=== PATIENT | male | born 1980 | race Caucasian/White ===

== ENCOUNTER 2018-07-25 14:18 | Emergency (ER) | payer MEDICARE, MEDICAID ==
[~2018-07-25] VITALS: Ht 180.3 cm; Wt 115.7 kg
[~2018-07-25 14:18] MED LIST: CPR500T PO; HYDR-229 PO; HYDR-2890 PO; NAPR-243 PO; NITR-65 PO
[2018-07-25] MEDS ORDERED: AZITHROMYCIN 250 MG TAB (ZITHROMAX) PO SCH (17:30)
[2018-07-25] MEDS ORDERED: cefTRIAXone 1,000 MG/2.86 ml vial (IM ONLY) IM SCH (17:30)
[2018-07-25 17:35] LABS: BILIRUBIN,URINE NEGATIVE (NEGATIVE); CLARITY,URINE CLEAR; COLOR,URINE YELLOW; GLUCOSE, URINE (UA) NEGATIVE (NEGATIVE); KETONES,URINE NEGATIVE (NEGATIVE); LEUKOCYTE ESTERASE ,URINE 2+ (NEGATIVE); NITRITE,URINE NEGATIVE (NEGATIVE); PH,URINE 7 (5-9); PROTEIN,URINE NEGATIVE (NEGATIVE); UROBILINOGEN,URINE 1 MG/DL (NORMAL)
[2018-07-25] MEDS ORDERED: cefTRIAXone 1 GM/10 ML for IV (ROCEPHIN) ONE (17:45)
[2018-07-25] MEDS ORDERED: LIDOCAINE 1% INJ 20 ML 20 ML VIAL ONE (17:45)
[2018-07-25 17:47] LABS: BACTERIA,URINE TRACE /HPF; SQUAMOUS EPITHELIAL CELL,UR RARE /HPF
[2018-07-25] MEDS ORDERED: CLOT15CR4 TP (17:47)
[2018-07-25] MEDS ORDERED: MUPI15CR11 TP (17:47)
--- NOTE | 2018-07-25 17:47 | ED GU-Male ---
General Chief Complaint: -Male Stated Complaint: POSS STD Nursing Triage Note: PT AMB TO TRIAGE. A&OX4. CO ITCHING NOTED TO GROIN. PT REPORTS HE SLEPT WITH A FEMALE APPROX 3WKS AGO THAT STATED "YOU CAUGHT SOMETHING FROM ME." PT REPORS ITCHING STARTED 07/22/18. DENIES PAIN AND REDNESS TO GROIN. Source: patient Exam Limitations: no limitations History of Present Illness Date Seen by Provider: Jul 25, 2018 Time Seen by Provider: 17:44 Initial Comments To ER per private vehicle with concerns of a possible STD. He states that he was "with a woman" about 3 weeks ago. About one week ago he developed some itching. He states that his friend told him that he may have caught something from her. He states "I am just itching and shit down there". Denies any draining or dysuria Timing/Duration: week Severity/Quality: moderate Location: groin Radiation: none Activities at Onset: none Prior Genitourinary Problems: none Allergies and Home Medications Allergies Coded Allergies: No Known Drug Allergies (Unverified , 01/18/12) Home Medications Ciprofloxacin 500 Mg Tablet, 1 TAB PO BID Prescribed by: NOY KRAMER on 01/21/12 1240 Hydrocodone Bit/Acetaminophen 1 Each Tablet, 1 EACH PO Q 4 - 6 HRS PRN Prescribed by: REGI SABA on 01/18/12 1100 Hydrocodone Bit/Acetaminophen 1 Each Tablet, 1 EACH PO Q6H PRN Prescribed by: NOY KRAMER on 01/21/12 1240 Naproxen 500 Mg Tablet, 1 EACH PO BID PRN Prescribed by: NOY KRAMER on 01/21/12 1240 Patient Home Medication List Home Medication List Reviewed: Yes Review of Systems Review of Systems Constitutional: see HPI EENTM: see HPI Respiratory: no symptoms reported Cardiovascular: no symptoms reported Genitourinary: see HPI; denies dysuria Musculoskeletal: no symptoms reported Skin: no symptoms reported Psychiatric/Neurological: No Symptoms Reported Endocrine: No Symptoms Reported Past Pnughnv-Wkqfuz-Zxirei Hx Patient Social History Alcohol Use: Rarely Uses Recreational Drug Use: No Smoking Status: Current Everyday Smoker Type Used: Cigarettes 2nd Hand Smoke Exposure: No Recent Foreign Travel: No Contact w/Someone Who Travel: No Recent Infectious Disease Expo: No Recent Hopitalizations: No Seasonal Allergies Seasonal Allergies: No Past Medical History Surgeries: Yes (HERNIA) Respiratory: No Cardiac: No Neurological: No Genitourinary: No Gastrointestinal: No Musculoskeletal: No Endocrine: No HEENT: No Cancer: No Psychosocial: No Integumentary: No Blood Disorders: No Physical Exam Vital Signs Vital Signs - First Documented 07/25/18 16:09 Temp 97.6 Pulse 70 Resp 16 B/P (MAP) 142/94 (110) Pulse Ox 100 O2 Delivery Room Air Capillary Refill : Less Than 3 Seconds Height, Weight, BMI Height: 5'11.00" Weight: 255lbs. oz. 115.534449at; BMI Method:Stated General Appearance: WD/WN, no apparent distress HEENT: PERRL/EOMI, normal ENT inspection Gastrointestinal: normal bowel sounds, non tender, soft Neurologic/Psychiatric: alert, normal mood/affect, oriented x 3 Skin: normal color, warm/dry, other (erythema with well demarcated edges to the groin/inguinal folds bilaterally consistent with tinea cruris) Progress/Results/Core Measures Suspected Sepsis Recent Fever Within 48 Hours: No Infection Criteria Present: None New/Unexplained Altered Menta: No Sepsis Screen: No Definite Risk SIRS Temperature:97.6 Pulse: 70 Respiratory Rate: 16 Blood Pressure 142 /94 Mean: 110 Results/Orders Lab Results Laboratory Tests Test 07/25/18 16:57 Range/Units My Orders Orders - JOANNE AIKEN APRN Ua Culture If Indicated (07/25/18 17:30) Neis Mike Dna Urine Test (07/25/18 17:30) Chlamydia Trachomatis Urine (07/25/18 17:30) Azithromycin Tablet (Zithromax Tablet) (07/25/18 17:30) Ceftriaxone For Im Use (Rocephin For Im (07/25/18 17:30) Vital Signs/I&O 07/25/18 16:09 Temp 97.6 Pulse 70 Resp 16 B/P (MAP) 142/94 (110) Pulse Ox 100 O2 Delivery Room Air Capillary Refill : Less Than 3 Seconds Blood Pressure Mean: 110 Departure Impression Primary Impression: Tinea cruris Disposition: 01 HOME, SELF-CARE Condition: Stable Departure-Patient Inst. Decision time for Depature: 17:46 Referrals: NO,LOCAL PHYSICIAN (PCP/Family) Primary Care Physician Patient Instructions: Dwight Ness (DC) Add. Discharge Instructions: 1. Apply the cream twice daily as directed. Mix the 2 creams together. Scripts Mupirocin Calcium (Mupirocin) 15 Gm Cream..g. 1 GM TP BID, #1 TUBE Prov: JOANNE AIKEN APRN 07/25/18 Clotrimazole/Betamethasone Dip (Lotrisone Cream) 15 Gm Cream..g. 1 GM TP BID, #1 TUBE Prov: JOANNE AIKEN APRN 07/25/18 JOANNE AIKEN APRN Jul 25, 2018 17:47
[2018-07-25 17:55] VITALS: BP 140/89
--- OUTSIDE RECORDS SUMMARY | 2018-07-26 10:22 | XMS REPORT ---
Author Earl Elam [facility] Address [address] [place], [place] [id number] Care Team Providers Care Electronic Calibration Technician Name Role Phone Earl Cooper PCP Unavailable Allergies and Adverse Reactions Name Reaction Notes No known drug allergy Plan of Treatment Not available. Medications Active Name Start Date Estimated Completion Date SIG Comments ibuprofen 200 mg oral capsule tramadol 50 mg oral tablet take 1 tablet (50 mg) by oral route every 4- 6 hours as needed Problem List Description Status Onset Umbilical hernia Active 08/21/2016 Vital Signs Date Time BP-Sys(mm[Hg] BP-Kimberly(mm[Hg]) HR(bpm) RR(rpm) Temp WT HT HC BMI BSA BMI Percentile O2 Sat(%) 08/21/2016 10:06:00 AM 135 mmHg 83 mmHg 74 bpm 20 rpm 97.2 F 266 lbs 71 in 37.10 kg/m2 2.46 m2 08/21/2016 9:28:00 AM 135 mmHg 83 mmHg 74 bpm 20 rpm 97.2 F 266 lbs 71 in 37.0991 kg/m 2.4585 m Social History Name Description Comments Tobacco Never smoker Alcohol Never History of Procedures Date Ordered Description Order Status 08/21/2016 12:00 AM COMPLETE CBC AUTOMATED Reviewed 08/21/2016 12:00 AM COMPREHEN METABOLIC PANEL Reviewed 09/23/2013 12:00 AM IMMUNIZATION ADMIN Reviewed 09/23/2013 12:00 AM FLU VACCINE 3 YRS & > IM Reviewed Results Summary Data and Description Results 08/21/2016 9:55 AM WBC 7.1 RBC 5.65 HGB 15.40 g/dLHCT 47.40 %MCV 84.0 fLMCH 27.30 pgMCHC 32.50 g/dLRDW SD 41 RDW CV 13.40 %MPV 9.30 fLPLT 240 NRBC# 0.00 NRBC% 0.0 %NEUT 54.30 %%LYMP 34.60 %%MONO 7.30 %%EOS 3.10 %%BASO 0.30 %#NEUT 3.87 #LYMP 2.47 #MONO 0.52 #EOS 0.22 #BASO 0.02 SEGS 59 BANDS 3 LYMPHS 34 MONOS 1 EOS 3.0 %ATYP LYMPHS SEVERAL %GLUCOSE 88.0 mg/dLSODIUM 143.0 mmol/LPOTASSIUM 4.90 mmol/LCHLORIDE 108.0 mmol/LCO2 27.0 mmol/LBUN 11.0 mg/dLCREATININE 1.10 mg/ dLSGOT/AST 23.0 IU/LSGPT/ALT 34.0 IU/LALK PHOS 73.0 IU/LTOTAL PROTEIN 6.90 g/ dLALBUMIN 4.50 g/dLTOTAL BILI 0.50 mg/dLCALCIUM 9.70 mg/dLAGE 34 GFR NonAA 77 GFR AA 93 eGFR >60 mL/min/1.73meGFR AA* >60 History Of Immunizations Name Date Admin Mfg Name Mfg Code Trade Name Lot# Route Inj Vis Given Vis Pub CVX Influenza 09/23/2013 sanofi pasteur PMC Fluzone [id number] Intramuscular Left Deltoid 09/23/2013 05/08/2013 141 History of Past Illness Name Date of Onset Comments Attention Deficit Disorder With Hyperactivity Umbilical hernia 08/21/2016 Flu Sep 23 2013 1:20PM Preop examination Aug 21 2016 9:30AM Umbilical hernia Aug 21 2016 9:30AM Payers Insurance Name Company Name Plan Name Plan Number Policy Number Policy Group Number Start Date Medicare Part A Medicare Part A [id number] N/A [place] 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
--- OUTSIDE RECORDS SUMMARY | 2018-07-26 10:22 | XMS REPORT ---
Author Author Earl Cooper [facility] Address [address] [place], [place] [phone] Care Team Providers Care Presser And Blocker Knitted Goods Name Role Phone Earl Cooper PCP Unavailable Allergies and Adverse Reactions Name Reaction Notes No known drug allergy Plan of Treatment Planned Activity Comments Planned Date Planned Time Plan/Goal CBC W/ MANUAL DIFF 08/21/2016 12:00 AM CMP 08/21/2016 12:00 AM Medications Active Name Start Date Estimated Completion Date SIG Comments ibuprofen 200 mg oral capsule Problem List Description Status Onset Umbilical hernia Active 08/21/2016 Preop examination Active 08/21/2016 Vital Signs Date Time BP-Sys(mm[Hg] [...] m Social History Name Description Comments Tobacco Alcohol History of Procedures Date Ordered Description Order Status 09/23/2013 12:00 AM IMMUNIZATION ADMIN Reviewed 09/23/2013 12:00 AM FLU VACCINE 3 YRS & > IM Reviewed Results Summary Not available. History Of Immunizations Name Date Admin Mfg Name Mfg Code Trade Name Lot# Route Inj Vis Given Vis Pub CVX Influenza 09/23/2013 sanofi pasteur PMC Fluzone [id number] Intramuscular Left Deltoid 09/23/2013 05/08/2013 141 History of Past Illness Name Date of Onset Comments Attention Deficit Disorder With Hyperactivity Umbilical hernia 08/21/2016 Preop examination 08/21/2016 Flu Sep 23 2013 1:20PM Preop examination Aug 21 2016 9:30AM Umbilical hernia Aug 21 2016 9:30AM Payers Insurance Name Company Name Plan Name Plan Number Policy Number Policy Group Number Start Date Medicare Part A Medicare Part A [id number] N/A [place] 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
--- OUTSIDE RECORDS SUMMARY | 2018-07-26 10:22 | XMS REPORT | CCD ---
Author Author YONNY MORROW Organization Unknown Address [address] [address] [place] [address] Care Team Providers Care Lift Driver Name Role Phone HINSON, KARMA DO Attphys HINSON, KARMA DO Prisurg Allergies Allergy Code Allergy Type Reaction Status No Known Drug Allergies 0 Drug allergy Active Active Medications Unknown or Not Available. Problems Unknown or Not Available. Procedures Unknown or Not Available. Results Unknown or Not Available. Encounters Encounter Diagnosis Diagnosis Code Start Date Laceration without foreign body of right thumb without damage to nail, initial encounter [id number] 01/11/2017 Function Status Unknown or Not Available. History of Immunizations Immunization Code Date DTP 1982 DTP 01 1982 DTP 01 01/29/1983 OPV 02 1982 OPV 02 1982 OPV 02 01/29/1983 OPV 02 12/15/1984 MMR 03 11/19/1983 Hib (HbOC) 47 07/15/1987 Influenza, seasonal, injectable 141 09/23/2013 Social History Smoking Status Code Start Date End Date Current every day smoker [id number] Vital Signs Unknown or Not Available. Function Status Unknown or Not Available. Goals Unknown or Not Available. ASSESSMENTS Unknown or Not Available. Health Concerns Section Unknown or Not Available.
--- OUTSIDE RECORDS SUMMARY | 2018-07-26 10:23 | XMS REPORT ---
Author Author Earl Cooper [facility] Address [address] [place], [place] [address] Care Team Providers Care Monitoring Engineer Name Role Phone Earl Cooper PCP Unavailable [...] CVX Influenza 09/23/2013 sanofi pasteur PMC Fluzone [id number] Intramuscular Left Deltoid 09/23/2013 05/08/2013 141 History [...] Date Medicare Part A Medicare Part A [id number] N/A [place] [employer] Prog - R[place] [employer] Prog - RHC [id number] N/A Medicare Part A Medicare - Lab/Xray [id number] N/A Medicare Part B Medicare Of [place] [id number] N/A [place] Medical [place] Program [place] Medical [place] Pro[place] [id number] N/A History of Encounters Visit Date Visit Type Provider 08/21/2016 Office visit Earl Cooper DO 09/23/2013 Nurse visit Barbara Padilla MD
--- OUTSIDE RECORDS SUMMARY | 2018-07-26 10:23 | XMS REPORT ---
Author Earl Elam [facility] Address [address] [place], [place] [address] Care Team Providers Care Director Dermatology Name Role Phone Earl Cooper PCP Unavailable [...] HC BMI BSA BMI Percentile O2 Sat(%) 09/04/2016 1:08:00 PM 126 mmHg 97 mmHg 82 bpm 20 rpm 97.4 F 264.5 lbs 71 in 36.89 kg/m2 2.45 m2 08/21/2016 10:06:00 AM 135 mmHg 83 mmHg 74 bpm 20 rpm 97.2 F 266 lbs 71 in 37.0991 kg/m 2.4585 m 08/21/2016 9:28:00 AM 135 mmHg 83 mmHg 74 bpm 20 rpm 97.2 F 266 lbs 71 in 37.10 kg/m2 2.46 m2 Social History Name Description Comments Tobacco Never [...] CVX Influenza 09/23/2013 sanofi pasteur PMC Fluzone [id number] Intramuscular Left Deltoid 09/23/2013 05/08/2013 141 History of Past Illness Name Date of Onset Comments Attention Deficit Disorder With Hyperactivity Umbilical hernia 08/21/2016 Flu Sep 23 2013 1:20PM Preop examination Aug 21 2016 9:30AM Umbilical hernia Aug 21 2016 9:30AM Payers Insurance Name Company Name Plan Name Plan Number Policy Number Policy Group Number Start Date Medicare Part A Medicare Part A [id number] N/A [place] [employer]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
--- OUTSIDE RECORDS SUMMARY | 2018-07-26 10:23 | XMS REPORT ---
Author Author CHANTAL NI Organization [facility] Address [address] [place] [address] Care Team Providers Care Log Inspector Name Role Phone CHANTAL NI Unavailable PROBLEMS Unknown Problems ALLERGIES No Information ENCOUNTERS Encounter Location Date Diagnosis [place] [id number] [address] Aug, Encounter for immunization Z23 [place] [id number] [address] Sep, Encounter for immunization [place] [address] [place] [id number] [address] Aug, IMMUNIZATIONS Vaccine Route Administration Date Status FLUARIX QUAD (3 AND UP) 2016 IM Intramuscular Aug 19, 2017 Administered SOCIAL HISTORY Never Assessed REASON FOR VISIT Flu shot STeposte CCMA PLAN OF CARE VITAL SIGNS MEDICATIONS Unknown Medications RESULTS No Results PROCEDURES Procedure Date Ordered Result Body Site FLUARIX QUAD (3 AND UP) 2017 Aug 19, 2017 SINGLE IMMUNIZATION ADMIN Aug 19, 2017 INSTRUCTIONS MEDICATIONS ADMINISTERED No Known Medications
--- OUTSIDE RECORDS SUMMARY | 2018-07-26 10:23 | XMS REPORT | Continuity of Care Document ---
Author Author [facility] Organization [facility] Address Unknown Phone Unavailable Allergies Active Description Code Type Severity Reaction Onset Reported/Identified Relationship to Patient Clinical Status Yes No Known Drug Allergies [id number] N/A N/A Medications There is no data. Problems There is no data. Procedures There is no data. Results Test Result Range Complete urinalysis with reflex to culture - 07/25/18 16:57 Urine color determination YELLOW NRG Urine clarity determination CLEAR NRG Urine pH measurement by test strip 7 5-9 Specific gravity of urine by test strip 1.010 1.016- 1.022 Urine protein assay by test strip, semi-quantitative NEGATIVE NEGATIVE Urine glucose detection by automated test strip NEGATIVE NEGATIVE Erythrocytes detection in urine sediment by light microscopy NEGATIVE NEGATIVE Urine ketones detection by automated test strip NEGATIVE NEGATIVE Urine nitrite detection by test strip NEGATIVE NEGATIVE Urine total bilirubin detection by test strip NEGATIVE NEGATIVE Urine urobilinogen measurement by automated test strip (mass/volume) 1 mg/dL NORMAL Urine leukocyte esterase detection by dipstick 2+ NEGATIVE Automated urine sediment erythrocyte count by microscopy (number/high power field) NONE NRG Automated urine sediment leukocyte count by microscopy (number/high power field ) [HPF] NRG Bacteria detection in urine sediment by light microscopy TRACE NRG Squamous epithelial cells detection in urine sediment by light microscopy RARE NRG Crystals detection in urine sediment by light microscopy NONE NRG Casts detection in urine sediment by light microscopy NONE NRG Mucus detection in urine sediment by light microscopy MODERATE NRG Complete urinalysis with reflex to culture YES NRG Encounters ACCT No. Visit Date/Time Discharge Status Pt. Type Provider Facility Loc./Unit Complaint [id number] 09/04/2016 13:42:48 09/04/2016 23:59:59 [facility] Outpatient Earl Cooper [id number] 08/28/2016 15:36:10 08/28/2016 23:59:59 [facility] Outpatient Earl Cooper [id number] 08/21/2016 10:17:54 08/21/2016 23:59:59 [facility] Outpatient Earl Cooper [id number] 11/05/2013 15:34:34 11/05/2013 23:59:59 [facility] Outpatient Barbara Padilla [id number] 08/19/2017 08:20:00 08/19/2017 23:59:59 [facility] Outpatient CASI RAMOS [facility] [id number] 09/13/2017 15:00:02 Document Registration [id number] 07/25/2018 17:47:00 Document Registration
--- OUTSIDE RECORDS SUMMARY | 2018-07-26 10:23 | XMS REPORT ---
Author Author CHANTAL NI [facility] Address [address] [place] [address] Care Team Providers Care Rigging Slinger Name Role Phone CHANTAL NI Unavailable PROBLEMS Unknown Problems ALLERGIES Substance Reaction Event Type Date Status N.K.D.A. Unknown Non Drug Allergy Sep, Unknown SOCIAL HISTORY No smoking Hx information available PLAN OF CARE VITAL SIGNS MEDICATIONS No Known Medications RESULTS No Results PROCEDURES Procedure Date Ordered Related Diagnosis Body Site FLUARIX QUAD P-FREE 3 AND UP .50 2015Oct 03, 2016 SINGLE IMMUNIZATION ADMIN Oct 03, 2016 IMMUNIZATIONS Vaccine Route Administration Date Status FLUARIX QUAD P-FREE 3 AND UP .50 2015 IM Intramuscular Oct 03, 2016 Administered
== END 2018-07-25 17:56 | disposition home or self-care (01) ==
LOC: EDUNIT# 14:18 → ER 14:19
DX: B35.6 Tinea cruris (principal); F17.210 Nicotine dependence, cigarettes, uncomplicated; Z98.890 Other specified postprocedural states
CPT/HCPCS: 36415; 81000; 87088; 87491; 87591; 99284

== ENCOUNTER 2018-07-27 17:16 | Emergency (ER) | payer MEDICARE, MEDICAID ==
[~2018-07-27] VITALS: Ht 180.3 cm; Wt 115.7 kg
[~2018-07-27 17:16] MED LIST changes: +CLOT15CR4 TP; +MUPI15CR11 TP
--- OUTSIDE RECORDS SUMMARY | 2018-07-27 17:21 | XMS REPORT | Continuity of Care Document ---
Author Author [facility] Organization [facility] Address Unknown Phone Unavailable Allergies Active Description Code Type Severity Reaction Onset Reported/Identified Relationship to Patient Clinical Status Yes No Known Drug Allergies [id number] N/A N/A Medications There is no data. [...] Status Pt. Type Provider Facility Loc./Unit Complaint [id number] 09/04/2016 13:42:48 09/04/2016 23:59:59 [facility] Outpatient Earl Cooper [id number] 08/28/2016 15:36:10 08/28/2016 23:59:59 [facility] Outpatient Earl Cooper [id number] 08/21/2016 10:17:54 08/21/2016 23:59:59 [facility] Outpatient Earl Cooper [id number] 11/05/2013 15:34:34 11/05/2013 23:59:59 [facility] Outpatient Barbara Padilla [id number] 08/19/2017 08:20:00 08/19/2017 23:59:59 [facility] Outpatient CASI RAMOS [facility] [id number] 09/13/2017 15:00:02 Document Registration [id number] 07/25/2018 17:47:00 Document Registration
--- NOTE | 2018-07-27 17:44 | ED Abdominal Pain ---
General Chief Complaint: Abdominal/GI Problems Stated Complaint: VOMITTING,FEVER Nursing Triage Note: PT CO OF N/V/D CHILLS AT TIMES, DIZZINESS. HAS VOMITED X5 TODAY. AND HAD DIARRHEA WAS SEEN IN ED ON SATURDAY AND TREATED FOR STD AND JOCK ITCH. PT TELLS THIS RN 4X THAT HE NEEDS A WORK NOTE DURING TRIAGE UNTIL SATURDAY Sepsis Screen: No Definite Risk Source of Information: Patient Exam Limitations: No Limitations History of Present Illness Date Seen by Provider: Jul 27, 2018 Time Seen by Provider: 17:42 Initial Comments Patient is a 38-year-old male who presents to the emergency room with complaints of body aches, fever, nausea, vomiting, diarrhea for the past 2 days. He reports that he was at work today and was sent home and was told that he needed a work note before he return back to work so he decided emergency room. He was seen in the emergency room on Saturday and was treated for STD and tinea cruris. Timing/Duration: 2-3 Days Associated Symptoms: Fever/Chills, Nausea/Vomiting Allergies and Home Medications Allergies Coded Allergies: No Known Drug Allergies (Unverified , 01/18/12) Home Medications Clotrimazole/Betamethasone Dip 15 Gm Cream..g., 1 GM TP BID Prescribed by: JOANNE AIKEN on 07/25/181746 Mupirocin Calcium 15 Gm Cream..g., 1 GM TP BID Prescribed by: JOANNE AIKEN on 07/25/181746 Ondansetron 4 Mg Tab.rapdis, 4 MG SL Q4H PRN for NAUSEA/VOMITING-1ST LINE Prescribed by: PHONG BAXTER on 07/27/18 1750 Patient Home Medication List Home Medication List Reviewed: Yes Review of Systems Review of Systems Constitutional: see HPI, chills, fever Gastrointestinal: See HPI; Denies Abdominal Pain; Diarrhea, Nausea, Vomiting Musculoskeletal: see HPI, other (body aches) All Other Systems Reviewed Negative Unless Noted: Yes Past Yrpqgbo-Kuuqht-Ouwgen Hx Past Med/Social Hx: Reviewed Nursing Past Med/Soc Hx Patient Social History Alcohol Use: Denies Use Recreational Drug Use: No Type Used: Cigarettes 2nd Hand Smoke Exposure: No Recent Foreign Travel: No Contact w/Someone Who Travel: No Recent Infectious Disease Expo: No Recent Hopitalizations: No Physical Abuse: No Sexual Abuse: No Seasonal Allergies Seasonal Allergies: No Past Medical History Surgeries: Yes (HERNIA) Respiratory: No Cardiac: No Neurological: No Genitourinary: No Gastrointestinal: No Musculoskeletal: No Endocrine: No HEENT: No Cancer: No Psychosocial: No Integumentary: No Blood Disorders: No Family Medical History Reviewed Nursing Family Hx Physical Exam Vital Signs Vital Signs - First Documented 07/27/18 17:20 Temp 98.2 Pulse 82 Resp 18 B/P (MAP) 173/108 (129) Pulse Ox 96 Capillary Refill : Less Than 3 Seconds Height/Weight/BMI Height: 5'11.00" Weight: 255lbs. oz. 115.719697ir; BMI Method:Stated General Appearance: WD/WN, no apparent distress Respiratory: chest non-tender, lungs clear, normal breath sounds, no respiratory distress, no accessory muscle use Cardiovascular: normal peripheral pulses, regular rate, rhythm, no edema, no gallop, no JVD, no murmur Gastrointestinal: normal bowel sounds, non tender, soft, no organomegaly, no pulsatile mass Extremities: normal capillary refill Neurologic/Psychiatric: alert, normal mood/affect, oriented x 3 Skin: normal color, warm/dry Progress/Results/Core Measures Results/Orders Micro Results Microbiology 07/27/18 Influenza Types A,B Antigen (FLORIAN) - Final, Complete My Orders Orders - PHONG BAXTER Influenza A And B Antigens (07/27/18 17:29) Ondansetron Oral Dissolve Tab (Zofran (07/27/18 17:45) Acetaminophen Tablet (Tylenol Tablet) (07/27/18 17:45) Vital Signs/I&O 07/27/18 07/27/18 17:20 18:23 Temp 98.2 Pulse 82 78 Resp 18 18 B/P (MAP) 173/108 (129) 145/88 (107) Pulse Ox 96 96 Blood Pressure Mean: 129 Progress Progress Note : Time: 17:40 Progress Note I have seen and evaluated the patient. I offered to do lab work and he declined. His states "i just want a work note". Work note was provided. Return precautions were given. Voices no questions or concerns. Departure Impression Primary Impression: Influenza-like symptoms Disposition: 01 HOME, SELF-CARE Condition: Stable/Unchanged Departure-Patient Inst. Decision time for Depature: 17:47 Referrals: DONTRELL GUERRA DO (PCP) Primary Care Physician Patient Instructions: Nausea and Vomiting, Adult, VIRAL SYNDROME Add. Discharge Instructions: Take medications as directed. Follow-up with her primary care provider within 1 week for recheck. Tylenol and ibuprofen as directed by the bottle for pain and fevers. Return back to the emergency room for any worsening symptoms or concerns as needed. All discharge instructions reviewed with patient and/or family. Voiced understanding. Scripts Ondansetron (Zofran Odt) 4 Mg Tab.rapdis 4 MG SL Q4H PRN for NAUSEA/VOMITING-1ST LINE, #14 TAB Prov: PHONG BAXTER 07/27/18 PHONG BAXTER Jul 27, 2018 17:44
[2018-07-27] MEDS ORDERED: ACETAMINOPHEN 500 MG TAB (TYLENOL) PO PRN (17:45)
[2018-07-27] MEDS ORDERED: ONDANSETRON 4 MG (ZOFRAN) ORAL DISSOLVE TAB PO ONE (17:45)
[2018-07-27] MEDS ORDERED: ONDA4TAB8 SL (17:50)
[2018-07-27 18:23] VITALS: BP 145/88
== END 2018-07-27 18:33 | disposition home or self-care (01) ==
LOC: EDUNIT# 17:16 → ER 17:17
DX: J10.1 Influenza due to other identified influenza virus with other respiratory manifestations (principal); Z98.890 Other specified postprocedural states
CPT/HCPCS: 87804

== ENCOUNTER → 2020-05-23 | Outpatient (CLI) | payer MEDICARE, MEDICAID ==
[~2020-05-23] VITALS: Ht 180.3 cm; Wt 123.4 kg
[~2020-05-23] MED LIST changes: +ONDA4TAB8 SL; +PANT40TA3 PO
== END ==
LOC: PREOP 05:36
PROVIDERS: ATTEND Surgery
DX: Z01.818 Encounter for other preprocedural examination (principal); K92.0 Hematemesis

== ENCOUNTER 2020-05-30 07:10 | Day surgery (SDC) | payer MEDICARE, MEDICAID ==
[2020-05-30] VITALS (9 sets, daily range): BP systolic 123–149; BP diastolic 73–101
[~2020-05-30] VITALS: Ht 180.3 cm; Wt 123.4 kg
[2020-05-30] MEDS ORDERED: PROPOFOL INJECTION 50 ML IV ONE (07:22)
[2020-05-30] MEDS ORDERED: MIDAZOLAM 2 MG/2 ML (VERSED) VIAL ONE (07:23)
[2020-05-30] MEDS ORDERED: LACTATED RINGERS 1,000 ML IV ONE (07:42)
[2020-05-30] MEDS ORDERED: HURRICAINE EXT TUBE (BENZOCAINE) XX PRN (08:00)
[2020-05-30] MEDS ORDERED: LACTATED RINGERS 1,000 ML IV PRN (08:00)
--- NOTE | 2020-05-30 08:04 | Progress Note-Pre Operative ---
Pre-Operative Progress Note H&P Reviewed The H&P was reviewed, patient examined and no changes noted. Time Seen by Provider: 08:00 Date H&P Reviewed: May 30, 2020 Time H&P Reviewed: 07:59 Pre-Operative Diagnosis: hematemesis JOESPH ADAM DO May 30, 2020 08:04
--- OUTSIDE RECORDS SUMMARY | 2020-05-30 08:42 | XMS REPORT | Continuity of Care Document ---
Demographics Preferred Language Unknown Marital Status Unknown Denominational Affiliation Unknown Race Unknown Ethnic Group Unknown Author Author [facility] Organization [employer] Address Unknown Phone Unavailable Allergies Active Description Code Type Severity Reaction Onset Reported/Identified Relationship to Patient Clinical Status Yes No Known Drug Allergies [id number] N/A N/A Yes No Known Drug Allergies [id number] Drug Allergy Unknown N/A 01/18/2012 Medications There is no data. Problems Date Dx Coded Attending Type Code Diagnosis Diagnosed By 07/25/2018 JOANNE AIKEN APRN Ot B35 .6 TINEA CRURIS 07/25/2018 JOANNE AIKEN APRN Ot F17.210 NICOTINE DEPENDENCE, CIGARETTES, UNCOMPL 07/25/2018 JOANNE AIKEN APRN Ot L29 .9 PRURITUS, UNSPECIFIED 07/25/2018 JOANNE AIKEN APRN Ot Z98.890 OTHER SPECIFIED POSTPROCEDURAL STATES 07/27/2018 PHONG BAXTER Ot J10.1 FLU DUE TO OTH IDENT INFLUENZA VIRUS W O 07/27/2018 PHONG BAXTER Ot R11.2 NAUSEA WITH VOMITING, UNSPECIFIED 07/27/2018 PHONG BAXTER Ot Z98.890 OTHER SPECIFIED POSTPROCEDURAL STATES 07/28/2018 JOANNE AIKEN APRN Ot B35 .6 TINEA CRURIS 07/28/2018 JOANNE AIKEN APRN Ot F17.210 NICOTINE DEPENDENCE, CIGARETTES, UNCOMPL 07/28/2018 JOANNE AIKEN APRN Ot L29 .9 PRURITUS, UNSPECIFIED 07/28/2018 JOANNE AIKEN APRN Ot Z98.890 OTHER SPECIFIED POSTPROCEDURAL STATES 07/29/2018 BERNPHONG FRANKLIN Ot J10.1 FLU DUE TO OTH IDENT INFLUENZA VIRUS W O 07/29/2018 BERNOTPHONG Ot R11.2 NAUSEA WITH VOMITING, UNSPECIFIED 07/29/2018 BERNOTPHONG Ot Z98.890 OTHER SPECIFIED POSTPROCEDURAL STATES 10/12/2018 P R110 Nausea 10/12/2018 S [id number] Per carol history of nicotine dependence 05/25/2020 DELMAN DO, JOESPH B Ot K92.0 HEMATEMESIS 05/25/2020 ANGELCLARENDON DO, JOESPH B Ot Z01.8 18 ENCOUNTER FOR OTHER PREPROCEDURAL EXAMIN 05/27/2020 KIA DO, JOESPH B Ot K92.0 HEMATEMESIS 05/27/2020 KIA DO, JOESPH B Ot Z01.8 18 ENCOUNTER FOR OTHER PREPROCEDURAL EXAMIN Procedures There is no data. Results Test Result Range Complete urinalysis with reflex to cultu re - 07/25/18 16:57 Urine color determination YELLOW NRG Urine clarity determination CLEAR NR G Urine pH measurement by test strip 7 5-9 Specific gravity of urine by test strip 1.010 1.016-1.022 Urine protein assay by test strip, semi-quantitative NEGATIVE NEGATIVE Urine glucose detection by automated test strip NE GATIVE NEGATIVE Erythrocytes detection in urine sediment by light micr oscopy NEGATIVE NEGATIVE Urine ketones detection by automated test strip NE GATIVE NEGATIVE Urine nitrite detection by test strip NEGATIVE NEGATIVE Urine total bilirubin detection by test strip NEGA TIVE NEGATIVE Urine urobilinogen measurement by automated test strip (mass/volume) 1 mg/dL NORMAL Urine leukocyte esterase detection by dipstick 2+ NEGATIVE Automated urine sediment erythrocyte cou nt by microscopy (number/high power field) NONE NRG Automated urine sediment leukocyte count by microscopy (number/high power field) [HPF] NRG Bacteria detection in urine sediment by light microsco py TRACE NRG Squamous epithelial cells detection in u rine sediment by light microscopy RARE NRG Crystals detection in urine sediment by light microsco py NONE NRG Casts detection in urine sediment by light microscopy NONE NRG Mucus detection in urine sediment by light microscopy MODERATE NRG Complete urinalysis with reflex to culture YES NRG Bacterial urine culture - 07/25/18 16:57 Bacterial urine culture NG NRG Chlamydia DNA amp probe, urine - 8 16:57 Chlamydia DNA amp probe, urine Detected Not Detected Urine Neisseria gonorrhoeae DNA assay - 07/25/18 16:57 Gonorrhea amp DNA-urine Not Detected No t Detected Influenza virus A and B antigen detectio n - 07/27/18 17:30 FLU RESULT NEGATIVE FOR INFLUENZA A AND B ANTIGENS BY IA NRG HEP B SURFACE ANTIGEN - 05/11/20 12:06 HEPATITIS B SURFACE ANTIGEN NON-REACTIVE NON-REACTIVE GC/CHLAMYDIA (SWAB OR URINE)-RAPID - 12:18 CHLAMYDIA TRACHOMATIS RNA, TMA NOT DETECTED NOT DETECTED NEISSERIA GONORRHOEAE RNA, TMA NOT DETECTED NOT DETECTED COMMENT NRG Encounters ACCT No. Visit Date/Time Discharge Status Pt. Type Provider Facility Loc./Unit Complaint [id number] 10/12/2018 10:55:42 Document Registration [id number] 10/12/2018 10:41:17 Document Registration [id number] 09/13/2017 15:00:02 Document Registration [id number] 05/11/2020 10:00:00 05/11/2020 23:59:5 9 CLS Outpatient CASI RAMOS [facility] [id number] 05/11/2020 10:00:00 Document Registration [id number] 05/27/2020 05:45:00 09:27:00 DIS Outpatient JOESPH ADAM DO [facility] PREOP HEMATEMESIS [id number] 07/27/2018 17:17:00 18:33:00 DIS Emergency PHONG BAXTER [facility] ER VOMITTING,FEVER [id number] 07/25/2018 14:19:00 018 17:56:00 DIS Emergency JOANNE AIKEN ROVING TELLER [facility] ER POSS STD [id number] 05/30/2020 08:40:00 P EN Preadmit JOESPH ADAM DO [facility] ENDO HEMATEMESIS [id number] 09/04/2016 13:42:48 09/04/2016 23:59: 59 CLS Outpatient Earl Cooper [id number] 08/28/2016 15:36:10 08/28/2016 23:59: 59 CLS Outpatient Earl Cooper [id number] 08/21/2016 10:17:54 08/21/2016 23:59: 59 CLS Outpatient Earl Cooper [id number] 11/05/2013 15:34:34 11/05/2013 23:59: 59 CLS Outpatient Barbara Padilla
--- NOTE | 2020-05-30 08:57 | Progress Note-Post Operative ---
Post-Operative Progess Note Surgeon (s)/Insulator Tester (s) Surgeon JOESPH ADAM DO Insulator Tester: none Pre-Operative Diagnosis hematemesis Post-Operative Diagnosis Gastritis Hiatal hernia Procedure & Operative Findings Date of Procedure 05/30/20 Procedure Performed/Findings EGD with bx Anesthesia Type IV sedation by ARCHITECTURAL REPRESENTATIVE Estimated Blood Loss Estimated blood loss (mL): scant Specimens/Packing Specimens Removed antral bx body of stomach bx GE jxn bx JOESPH ADAM DO May 30, 2020 08:57
--- NOTE | 2020-05-30 08:58 | Endoscopy Discharge Instruct ---
Endo Procedure/Findings Findings 1.: Gastritis 2.: Hiatal Hernia Discharge Instructions - Activity: You might feel a little sleepy until tomorrow. This is due to the medicine you received to relax you. Until tomorrow, you should: NOT drive a car, operate machinery or power tools. NOT drink any alcoholic beverages. NOT make any important decisions or sign importortant papers. Do not return to work until tomorrow, unless otherwise instructed. Resume previous activities tomorrow. Diet: Start by taking liquids. If you tolerate liquids, advance to solid food. make an appointment for one week 1.: EGD in 1 year Notify Physician - If you experience excessive bleeding, unusual abdominal pain, fever, or chest pain, contact your doctor immediately. JOESPH ADAM DO May 30, 2020 08:58
--- NOTE | 2020-05-30 10:51 | Anesthesia-General Post-Op ---
MAC Patient Condition Mental Status/LOC: Same as Preop Cardiovascular: Satisfactory Nausea/Vomiting: Absent Respiratory: Satisfactory Pain: Controlled Complications: Absent Post Op Complications Complications None Follow Up Care/Instructions Patient Instructions None needed. Anesthesiology Discharge Order Discharge Order Patient is doing well, no complaints, stable vital signs, no apparent adverse anesthesia problems. No complications reported per nursing. AKUA BURGER CRNA May 30, 2020 10:51
--- NOTE | 2020-05-31 00:57 | OPERATIVE REPORT ---
DATE OF SERVICE: PREOPERATIVE DIAGNOSIS: Hematemesis. POSTOPERATIVE DIAGNOSES: Gastritis and hiatal hernia. PROCEDURE: EGD with biopsy. SURGEON: Srinivas Berumen DO UNION CARPENTER: None. ANESTHESIA: IV sedation by the FINANCIAL SERVICES CONSULTANT. SPECIMEN: Biopsy of the antrum, biopsy of body of stomach, biopsy of the GE junction. BLOOD LOSS: Scant. FLUIDS: Per anesthesia. POSTOPERATIVE CONDITION: Stable. INDICATION FOR PROCEDURE: The patient is a 39-year-old male, who has been having some hematemesis and needed a workup. FINDINGS: The patient had some mild gastritis and a small hiatal hernia. No other obvious pathology or reason for the hematemesis. PROCEDURE NOTE: After informed consent was obtained, the patient was brought to the endoscopy suite, placed in bed in left lateral decubitus position. He was administered IV sedation by the FINANCIAL SERVICES CONSULTANT who then monitored his vitals the entire time, heart rate, blood pressure and pulse ox and the scope was inserted down the mouth through the esophagus into the stomach. Upon entering the stomach, noted some gastritis in the antrum, pushing the duodenum. Duodenum looked fine. Pulled back and did a biopsy of the antrum, then retroflexed the scope, saw small hiatal hernia and then did a biopsy of body of stomach, pulled the scope into the GE junction, did a biopsy and then pushed the scope into the stomach, suctioned all the air out and then pulled the scope up the esophagus and out the mouth, did not find any pathology in the esophagus, removed the scope. The patient tolerated the procedure, recovered in endoscopy suite. Job ID: [id number] DocumentID: [id number] Dictated Date: 05/30/2020 15:01:51 Refrigeration Specialist Date: 05/31/2020 00:56:25 Dictated By: SRINIVAS BERUMEN DO
== END 2020-05-30 09:40 | disposition home or self-care (01) ==
LOC: ENDO 07:10
PROVIDERS: ATTEND Surgery
DX: K29.50 Unspecified chronic gastritis without bleeding (principal); K44.9 Diaphragmatic hernia without obstruction or gangrene; Z87.891 Personal history of nicotine dependence
CPT/HCPCS: 88305

== ENCOUNTER 2020-09-08 12:27 | Emergency (ER) | payer MEDICARE, MEDICAID ==
[~2020-09-08] VITALS: Ht 180.3 cm; Wt 104.0 kg
[~2020-09-08 12:27] MED LIST changes: -PANT40TA3 PO; +PANT40TA52 PO
[2020-09-08] MEDS ORDERED: RX-CYCLOBENZAPRINE 10 MG (FLEXERIL) TAB PPK#3 PO STA (13:23)
[2020-09-08] MEDS ORDERED: RX-TRAMADOL 50 MG (ULTRAM) TAB PPK#4 PO STA (13:23)
[2020-09-08] MEDS ORDERED: TRAM-42 PO (13:28)
[2020-09-08] MEDS ORDERED: CYCL10TA9 PO (13:28)
[2020-09-08] MEDS ORDERED: KETOROLAC 30 MG/ML VIAL IM ONE (13:30)
--- NOTE | 2020-09-08 13:30 | ED Back Pain ---
General Chief Complaint: Back Problems Stated Complaint: BACK PAIN Source of Information: Patient Exam Limitations: No Limitations History of Present Illness Date Seen by Provider: Sep 08, 2020 Time Seen by Provider: 13:15 Initial Comments This 40-year-old gentleman presents to the emergency room with complaints of mid to lower back pain starting 1 to 2 weeks ago. 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 He denies any weakness in the legs, paresthesias, pain radiating down the legs, saddle paresthesia, or bowel or bladder dysfunction. He has tried ibuprofen 800 mg without relief. Allergies and Home Medications Allergies Coded Allergies: No Known Drug Allergies (Unverified , 01/18/12) Home Medications Cyclobenzaprine HCl 10 Mg Tablet, 10 MG PO Q8H PRN for SPASMS Prescribed by: ED GOMEZ on 09/08/20 1328 Pantoprazole Sodium 40 Mg Tablet.dr, 40 MG PO DAILY, (Reported) Tramadol HCl 50 Mg Tablet, 50 MG PO Q6H PRN for PAIN-BREAKTHROUGH Prescribed by: ED GOMEZ on 09/08/20 1330 Patient Home Medication List Home Medication List Reviewed: Yes Review of Systems Constitutional: no symptoms reported EENTM: no symptoms reported Respiratory: no symptoms reported Cardiovascular: no symptoms reported Gastrointestinal: no symptoms reported Genitourinary: no symptoms reported Musculoskeletal: see HPI Skin: no symptoms reported Psychiatric/Neurological: No Symptoms Reported Past Foqbolq-Vskbcg-Slitod Hx Past Med/Social Hx: Reviewed Nursing Past Med/Soc Hx Patient Social History Alcohol Use: Denies Use Recreational Drug Use: No Smoking Status: Former Smoker Type Used: Cigarettes Former Smoker, Quit: May 23, 2018 2nd Hand Smoke Exposure: No Recent Hopitalizations: No Seasonal Allergies Seasonal Allergies: No Past Medical History Surgeries: Yes (HERNIA) Respiratory: No Cardiac: No Neurological: No Genitourinary: No Gastrointestinal: Yes (hematemesis) Musculoskeletal: No Endocrine: No HEENT: No Cancer: No Psychosocial: No Integumentary: No Blood Disorders: No Physical Exam Vital Signs Capillary Refill : Height, Weight, BMI Height: 5'11.00" Weight: 255lbs. oz. 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 A take-home pack of tramadol and cyclobenzaprine was dispensed as it is the holiday and pharmacies in [facility] are closed. Work note provided. Departure Impression Primary Impression: Low back pain Qualified Codes: M54.5 - Low back pain Disposition: 01 HOME, SELF-CARE Condition: Improved Departure-Patient Inst. Decision time for Depature: 13:25 [place] [facility] [place] Primary Care Physician ERNESTO TAPIA (Family) Primary Care Physician Patient Instructions: Low Back Pain in Adults Add. Discharge Instructions: For primary pain control take ibuprofen up to 600 mg every 6 hours and Tylenol (acetaminophen) up to 1000 mg every 6 hours as needed. Add Ultram (tramadol) as prescribed for pain not controlled by Tylenol and ibuprofen. If you are having muscle tension or spasms, try the Flexeril (cyclobenzaprine) e very 8 hours. Using gentle heat on your back such as a warm moist towel may help relax the muscles. Avoid heavy lifting and bending until pain improves. Contact your primary care provider tomorrow for follow-up. Return to the emergency room if you have worsening symptoms, especially if you develop weakness in your legs, numbness in your legs, difficulty controlling your bowels or bladder, or numbness in your groin. All discharge instructions reviewed with patient and/or family. Voiced understanding. Scripts Tramadol HCl (Ultram) 50 Mg Tablet 50 MG PO Q6H PRN for PAIN-BREAKTHROUGH, #10 TAB Prov: ED WADDELL MD 09/08/20 Cyclobenzaprine HCl (Cyclobenzaprine HCl) 10 Mg Tablet 10 MG PO Q8H PRN for SPASMS, #10 TAB Prov: ED WADDELL MD 09/08/20 Work/School Note: Work Release Form Date Seen in the Emergency Department: Sep 08, 2020 Return to Work: Sep 10, 2020 Other Restrictions Listed Below: Gradually increase level of activity as pain allows. ED WADDELL MD Sep 08, 2020 13:30
[2020-09-08 13:59] VITALS: BP 122/96
== END 2020-09-08 13:59 | disposition home or self-care (01) ==
LOC: EDUNIT# 12:27 → ER 12:28
DX: M54.5 Low back pain (principal); Z20.828 Contact with and (suspected) exposure to other viral communicable diseases; Z87.891 Personal history of nicotine dependence
CPT/HCPCS: 99284

== ENCOUNTER 2020-09-27 07:43 | Emergency (ER) | payer MEDICARE, MEDICAID ==
[~2020-09-27] VITALS: Ht 170 cm; Wt 111.0 kg
[~2020-09-27 07:43] MED LIST changes: +CYCL10TA9 PO; +TRAM-42 PO
--- NOTE | 2020-09-27 09:12 | Diagnostic Imaging Report ---
INDICATION: Left tibia and fibula at 8:54 AM INDICATION: Lower leg pain AP and lateral views were obtained. There are no prior studies available for comparison. There is no fracture, dislocation or acute bony abnormality evident. The knee and ankle joints are well maintained. The soft tissues are unremarkable. IMPRESSION: There is no evidence for an acute bony abnormality. Dictated by: Dictated on workstation # [id number]
--- NOTE | 2020-09-27 09:23 | ED Lower Extremity ---
General Chief Complaint: Lower Extremity Stated Complaint: L LEG PAIN Nursing Triage Note: ARRIVED VIA AMB WITH COMPLAINTS OF LEFT LOWER LEG PAIN AFTER FALLING WHILE PLAYING BASKET BALL LAST NIGHT. Nursing Sepsis Screen: No Definite Risk Source: patient Exam Limitations: no limitations History of Present Illness Date Seen by Provider: Sep 27, 2020 Time Seen by Provider: 08:15 Initial Comments This 40-year-old gentleman presents to the emergency room with a primary complaint of left lower leg pain after falling while playing basketball last night. His pain is primarily in the belly of the calf muscles but also there is some pain at the proximal end of the fibula. He is ambulatory. Allergies and Home Medications Allergies Coded Allergies: No Known Drug Allergies (Unverified , 01/18/12) Home Medications Cyclobenzaprine HCl 10 Mg Tablet, 10 MG PO Q8H PRN for SPASMS Prescribed by: ED GOMEZ on 09/08/20 1328 Pantoprazole Sodium 40 Mg Tablet.dr, 40 MG PO DAILY, (Reported) Tramadol HCl 50 Mg Tablet, 50 MG PO Q6H PRN for PAIN-BREAKTHROUGH Prescribed by: ED GOMEZ on 09/08/20 1330 Patient Home Medication List Home Medication List Reviewed: Yes Review of Systems Constitutional: no symptoms reported Musculoskeletal: see HPI Skin: no symptoms reported Psychiatric/Neurological: No Symptoms Reported Past Ecajiaa-Wxfyld-Wmtosc Hx Past Med/Social Hx: Reviewed Nursing Past Med/Soc Hx Patient Social History Alcohol Use: Denies Use Recreational Drug Use: No Smoking Status: Never a Smoker Type Used: Cigarettes Former Smoker, Quit: May 23, 2018 2nd Hand Smoke Exposure: No Recent Foreign Travel: No Contact w/Someone Who Travel: No Recent Infectious Disease Expo: No Recent Hopitalizations: No Seasonal Allergies Seasonal Allergies: No Past Medical History Surgeries: Yes (HERNIA) Respiratory: No Cardiac: No Neurological: No Genitourinary: No Gastrointestinal: Yes (hematemesis) Musculoskeletal: No Endocrine: No HEENT: No Cancer: No Psychosocial: No Integumentary: No Blood Disorders: No Physical Exam Vital Signs Vital Signs - First Documented 09/27/20 08:05 Temp 35.1 Pulse 72 Resp 16 B/P (MAP) 140/96 (111) Pulse Ox 95 O2 Delivery Room Air Capillary Refill : Less Than 3 Seconds Height, Weight, BMI Height: 5'11.00" Weight: 255lbs. oz. 115.644510pb; 38.00 BMI Method:Stated General Appearance: WD/WN, no apparent distress HEENT: normal ENT inspection Respiratory: normal breath sounds, no respiratory distress Legs: left leg normal inspection, left leg normal range of motion, left leg bone tenderness (Proximal end of the fibula), left leg soft tissue tenderness (Belly of the calf muscle) Knees: left knee non-tender, left knee normal inspection, left knee normal range of motion, left knee no evidence of injury Ankles: left ankle non-tender, left ankle normal inspection, left ankle normal range of motion, left ankle no evidence of injury Neurologic/Tendon: normal sensation, normal motor functions, normal tendon functions Neurologic/Psychiatric: customer program specialist II-XII nml as tested, no motor/sensory deficits, alert, normal mood/affect, oriented x 3 Skin: normal color, warm/dry Progress/Results/Core Measures Results/Orders My Orders Orders - ED WADDELL MD Tibia/Fibula, Left, 2 Views (09/27/20 08:21) Ibuprofen Tablet (Motrin Tablet) (09/27/20 09:45) Vital Signs/I&O 09/27/20 09/27/20 08:05 09:49 Temp 35.1 35.1 Pulse 72 72 Resp 16 16 B/P (MAP) 140/96 (111) 140/96 (111) Pulse Ox 95 95 O2 Delivery Room Air Room Air Blood Pressure Mean: 111 Diagnostic Imaging Diagonstic Imaging: Xray Plain Films/CT/US/NM/MRI: leg Comments Left tib-fib x-rays viewed by me and report reviewed. See report below: NAME: ANABEL [facility]ANT[facility] REC#: [id number] PT STATUS: DEP ER : 1980 PHYSICIAN: ED WADDELL MD ADMIT DATE: 09/27/20/ER Signed Date of Exam:09/27/20 TIBIA/FIBULA, LEFT, 2 VIEWS INDICATION: Left tibia and fibula at 8:54 AM INDICATION: Lower leg pain AP and lateral views were obtained. There are no prior studies available for comparison. There is no fracture, dislocation or acute bony abnormality evident. The knee and ankle joints are well maintained. The soft tissues are unremarkable. IMPRESSION: There is no evidence for an acute bony abnormality. Dictated by: Dictated on workstation # [id number] Dict: 09/27/20 0909 Trans: 09/28/20 1145 [facility] [id number] Interpreted by: JEAN-PIERRE ECEHVARRIA MD Electronically signed by: JEAN-PIERRE ECHEVARRIA MD 09/28/20 1145 Departure Impression Primary Impression: Strain of left calf muscle Disposition: HOME, SELF-CARE Condition: Improved Departure-Patient Inst. Decision time for Depature: 09:27 [place]errals: [facility] [place] Primary Care Physician ERNESTO TAPIA (Family) Primary Care Physician Patient Instructions: Muscle Strain (DC) Add. Discharge Instructions: There are no fractures of your lower leg identified on x-rays. Your pain is likely due to a muscle strain. You may take Tylenol (acetaminophen) up to 1000 mg every 6 hours as needed. You may also take ibuprofen up to 600 mg every 6 hours as needed. Gradually increase activity as pain allows. Gentle stretching may help relax the muscle. Icing in 20-minute intervals during the first few days may also be helpful. Return to care or call your doctor with any questions or concerns. All discharge instructions reviewed with patient and/or family. Voiced understanding. ED WADDELL MD Sep 27, 2020 09:23
[2020-09-27] MEDS ORDERED: IBUPROFEN TABLET 200 MG TAB PO ONE (09:45)
[2020-09-27 09:49] VITALS: BP 140/96
== END 2020-09-27 09:49 | disposition home or self-care (01) ==
LOC: EDUNIT# 07:43 → ER 07:46
DX: S86.112A Strain of other muscle(s) and tendon(s) of posterior muscle group at lower leg level, left leg, initial encounter (principal); Z87.891 Personal history of nicotine dependence; W19.XXXA Unspecified fall, initial encounter; Y93.67 Activity, basketball
CPT/HCPCS: 73590

== ENCOUNTER 2021-05-01 02:46 | Emergency (ER) | payer MEDICARE, MEDICAID ==
[~2021-05-01] VITALS: Ht 180 cm; Wt 120.0 kg
[2021-05-01] MEDS ORDERED: LACTATED RINGERS 1,000 ML IV ONE (03:00)
[2021-05-01] MEDS ORDERED: KETOROLAC 30 MG/ML VIAL IVP ONE (03:00)
--- NOTE | 2021-05-01 03:05 | ED Abdominal Pain ---
General Chief Complaint: Abdominal/GI Problems Stated Complaint: LEFT SIDE PAIN Nursing Triage Note: C/O LEFT SIDED ABDOMINAL PAIN SINCE 229 Source of Information: Patient Exam Limitations: No Limitations History of Present Illness Date Seen by Provider: May 01, 2021 Time Seen by Provider: 02:45 Initial Comments Patient to the ER by private conveyance with chief complaint he was awoken about 2:30 in the morning with some sharp pain in his left groin and left flank. He has had kidney stones in the past. He was afraid about his appendix bursting so he came to the ER. He has not taken anything for the pain. He is not having any nausea fevers chills or diarrhea. He does have a little dysuria. No hematuria. 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 Allergies and Home Medications Allergies Coded Allergies: No Known Drug Allergies (Unverified , 01/18/12) Home Medications Cephalexin 500 Mg Tablet, 500 MG PO BID Prescribed by: JORDIN BOURGEOIS on 05/01/21416 Cyclobenzaprine HCl 10 Mg Tablet, 10 MG PO Q8H PRN for SPASMS Prescribed by: ED GOMEZ on 09/08/20 1328 Hydrocodone/Acetaminophen 1 Each Tablet, 1 TAB PO Q4H PRN for PAIN-MODERATE (5- 7) Prescribed by: JORDIN BOURGEOIS on 05/01/21417 Ondansetron 4 Mg Tab.rapdis, 4 MG PO Q6H PRN for NAUSEA/VOMITING Prescribed by: JORDIN BOURGEOIS on 05/01/21416 Pantoprazole Sodium 40 Mg Tablet.dr, 40 MG PO DAILY, (Reported) Tamsulosin HCl 0.4 Mg Cap, 0.4 MG PO DAILY Prescribed by: JORDIN BOURGEOIS on 05/01/21416 Tramadol HCl 50 Mg Tablet, 50 MG PO Q6H PRN for PAIN-BREAKTHROUGH Prescribed by: ED GOMEZ on 09/08/20 1330 Patient Home Medication List Home Medication List Reviewed: Yes Review of Systems Review of Systems Constitutional: No chills, No diaphoresis EENTM: No Blurred Vision, No Double Vision Respiratory: Denies Cough, Denies Shortness of Air Cardiovascular: Denies Chest Pain, Denies Edema Gastrointestinal: See HPI, Abdominal Pain; Denies Constipated Genitourinary: Denies Burning, Denies Discharge Musculoskeletal: No back pain, No joint pain Skin: No pruritus, No rash Psychiatric/Neurological: Denies Headache, Denies Numbness All Other Systems Reviewed Negative Unless Noted: Yes Past Bredvxr-Gjlqsi-Smmpnk Hx Patient Social History Tobacco Use?: No Use of E-Cig and/or Vaping dev: No Substance use?: No Alcohol Use?: No Pt feels they are or have been: No Seasonal Allergies Seasonal Allergies: No Past Medical History Surgery/Hospitalization HX: RENAL STONES Surgeries: Yes (HERNIA) Abdominal Respiratory: No Cardiac: No Neurological: No Genitourinary: No Gastrointestinal: Yes (hematemesis) Musculoskeletal: No Endocrine: No HEENT: No Cancer: No Psychosocial: No Integumentary: No Blood Disorders: No Physical Exam Vital Signs Vital Signs - First Documented 05/01/21 02:53 Temp 36.8 Pulse 73 Resp 18 B/P (MAP) 156/115 (129) Pulse Ox 97 O2 Delivery Room Air Capillary Refill : Less Than 3 Seconds Height/Weight/BMI Height: 5'11.00" Weight: 255lbs. oz. 115.841851zt; 37.00 BMI Method:Stated General Appearance: WD/WN, no apparent distress HEENT: PERRL/EOMI, pharynx normal Respiratory: no respiratory distress, no accessory muscle use Cardiovascular: normal peripheral pulses, regular rate, rhythm, no edema Gastrointestinal: non tender, soft Extremities: normal range of motion, non-tender, normal capillary refill Neurologic/Psychiatric: alert, normal mood/affect, oriented x 3 Skin: normal color, warm/dry Progress/Results/Core Measures Results/Orders Lab Results Laboratory Tests Test 05/01/21 02:45 05/01/21 02:53 Range/Units White Blood Count 7.1 4.3-11.0 10^3/uL Red Blood Count 5.75 H 4.30-5.52 10^6/uL Hemoglobin 15.3 13.3-17.7 g/dL Hematocrit 48 40-54 % Mean Corpuscular Volume 84 80-99 fL Mean Corpuscular Hemoglobin 27 25-34 pg Mean Corpuscular Hemoglobin Concent 32 32-36 g/dL Red Cell Distribution Width 13.9 10.0-14.5 % Platelet Count 260 130-400 10^3/uL Mean Platelet Volume 9.3 9.0-12.2 fL Immature Granulocyte % (Auto) 0 % Neutrophils (%) (Auto) 43 42-75 % Lymphocytes (%) (Auto) 47 H 12-44 % Monocytes (%) (Auto) 7 0-12 % Eosinophils (%) (Auto) 2 0-10 % Basophils (%) (Auto) 0 0-10 % Neutrophils # (Auto) 3.0 1.8-7.8 10^3/uL Lymphocytes # (Auto) 3.4 1.0-4.0 10^3/uL Monocytes # (Auto) 0.5 0.0-1.0 10^3/uL Eosinophils # (Auto) 0.2 0.0-0.3 10^3/uL Basophils # (Auto) 0.0 0.0-0.1 10^3/uL Immature Granulocyte # (Auto) 0.0 0.0-0.1 10^3/uL Sodium Level 146 H 135-145 MMOL/L Potassium Level 4.5 3.6-5.0 MMOL/L Chloride Level 109 H 98-107 MMOL/L Carbon Dioxide Level 26 21-32 MMOL/L Anion Gap 11 5-14 MMOL/L Blood Urea Nitrogen 9 7-18 MG/DL Creatinine 1.02 0.60-1.30 MG/DL Estimat Glomerular Filtration Rate > 60 BUN/Creatinine Ratio 9 Glucose Level 108 H 70-105 MG/DL Calcium Level 9.6 8.5-10.1 MG/DL Corrected Calcium 9.4 8.5-10.1 MG/DL Total Bilirubin 0.4 0.1-1.0 MG/DL Aspartate Amino Transf (AST/SGOT) 22 5-34 U/L Alanine Aminotransferase (ALT/SGPT) 37 0-55 U/L Alkaline Phosphatase 70 40-136 U/L Total Protein 7.0 6.4-8.2 GM/DL Albumin 4.3 3.2-4.5 GM/DL Urine Color YELLOW Urine Clarity SL CLOUDY Urine pH 5.5 5-9 Urine Specific [place] >=1.030 1.016-1.022 Urine Protein NEGATIVE NEGATIVE Urine Glucose (UA) NEGATIVE NEGATIVE Urine Ketones NEGATIVE NEGATIVE Urine Nitrite NEGATIVE NEGATIVE Urine Bilirubin NEGATIVE NEGATIVE Urine Urobilinogen 1.0 < = 1.0 MG/DL Urine Leukocyte Esterase NEGATIVE NEGATIVE Urine RBC (Auto) 3+ H NEGATIVE Urine RBC >100 H /HPF Urine WBC 0-2 /HPF Urine Crystals NONE /LPF Urine Bacteria FEW H /HPF Urine Casts NONE /LPF Urine Mucus MODERATE H /LPF Urine Culture Indicated YES My Orders Orders - JORDIN BOURGEOIS Ct Abd/Pelvis Wo(Kidney Stone) (05/01/21 02:56) Ed Iv/Invasive Line Start (05/01/21 02:56) Lactated Ringers (Lr 1000 Ml Iv Solution (05/01/21 03:00) Ketorolac Injection (Toradol Injection) (05/01/21 03:00) Cbc With Automated Diff (05/01/21 02:56) Comprehensive Metabolic Panel (05/01/21 02:56) Ua Culture If Indicated (05/01/21 03:41) Abdomen/Kub 1view (05/01/21 04:14) Urine Culture (05/01/21 02:53) Medications Given in ED Current Medications Medications Dose Ordered Sig/Kedar Route Start Time Stop Time Status Last Admin Dose Admin Ketorolac Tromethamine 30 mg ONCE ONCE IVP 05/01/21 03:00 05/01/21 03:01 DC 05/01/21 03:01 30 MG Lactated Ringer's 1,000 ml @ 0 mls/hr Q0M ONCE IV 05/01/21 03:00 05/01/21 03:01 DC 05/01/21 03:01 0 MLS/HR Vital Signs/I&O 05/01/21 05/01/21 02:53 04:59 Temp 36.8 Pulse 73 60 Resp 18 20 B/P (MAP) 156/115 (129) 154/102 Pulse Ox 97 96 O2 Delivery Room Air Room Air Blood Pressure Mean: 129 Progress Progress Note : Time: 03:04 Progress Note Suspect kidney stone. Toradol check some labs and get a CT of his abdomen and pelvis. Diagnostic Imaging Diagonstic Imaging: CT Plain Films/CT/US/NM/MRI: abdomen, pelvis Comments 5 mm obstructing proximal ureteral calculus. [facility] [place], [place] NAME: ANABEL SANTANA REC#: [id number] PT STATUS: DEP ER : 1980 PHYSICIAN: JORDIN BOURGEOIS MD ADMIT DATE: 05/01/21/ER Draft Date of Exam:05/01/21 CT ABD/PELVIS WO(KIDNEY STONE) PROCEDURE: CT urinary tract, rule out kidney stone. TECHNIQUE: Multiple contiguous axial images were obtained through the abdomen and pelvis without the use of intravenous contrast. Auto Exposure Controls were utilized during the CT exam to meet ALARA standards for radiation dose reduction. INDICATION: Left flank pain. Patient with history of kidney stones. COMPARISON: Multiple priors, most recent performed on 01/18/2012. FINDINGS: The lung bases are clear. Visualized heart is normal in size. The liver, gallbladder, spleen, pancreas and adrenal glands are unremarkable. There is no biliary or pancreatic ductal dilatation. There is a 5 mm calculus in the proximal left ureter, just beyond the ureteropelvic junction. This causes mild fullness of the left collecting system, without overt hydroureteronephrosis. There is no renal calculus or hydronephrosis on the right. The kidneys are symmetric in size. No abnormality in the visualized ureters. The small bowel and colon are normal in course and caliber, without evidence of wall thickening or obstruction. The appendix is normal. No pneumoperitoneum, abdominal free fluid or loculated collection. The bladder is decompressed and not evaluated. Prostate gland is normal in size. No lymphadenopathy is appreciated. The aorta is nonaneurysmal. The abdominal wall is unremarkable. No acute osseous abnormality is identified. IMPRESSION: There is a 5 mm calculus in the proximal left ureter, just beyond the ureteropelvic junction. This causes mild fullness of the left collecting system. Otherwise, no acute abdominal or pelvic pathology. Findings are in agreement with initial teleradiology report. Dictated on workstation # [id number] Dict: 05/01/21611 Trans: 05/01/21 0627 [id number] Interpreted by: ALFRED POLLACK DO Electronically signed by: Reviewed: Reviewed by Me Diagonstic Imaging: Xray Plain Films/CT/US/NM/MRI: abdomen, pelvis Comments [facility], [place] NAME: ANABEL SANTANA [facility] REC#: [id number] PT STATUS: DEP ER : 1980 PHYSICIAN: JORDIN BOURGEOIS MD ADMIT DATE: 05/01/21/ER Draft Date of Exam:05/01/21 ABDOMEN/KUB 1VIEW EXAMINATION: AP supine abdomen INDICATION: Left flank pain. Kidney stones. COMPARISON: Abdominal radiograph performed on 01/21/[address] abdomen and pelvis performed same day. FINDINGS: There is a nonobstructive bowel gas pattern. Scattered gas and stool is noted in the colon, with mild retained stool noted throughout. There is a 5 mm calcification left midabdomen, corresponding with left ureteral calculus seen on CT scan. No other calcifications are noted. No organomegaly or findings to suggest pneumoperitoneum. No acute osseous abnormality is identified. Visualized lung bases are clear. IMPRESSION: Nonobstructive bowel gas pattern. A 5 mm calcification in the left midabdomen corresponds to left ureteral calculus seen on CT scan. Dictated on workstation # [id number] Dict: 05/01/21 0521 Trans: 05/01/21 0526 [facility] [id number] Interpreted by: ALFRED POLLACK DO Electronically signed by: Reviewed: Reviewed by Me Departure Impression Primary Impression: Ureteral calculus, left Disposition: 01 HOME, SELF-CARE Condition: Stable Departure-Patient Inst. Decision time for Depature: 04:13 Referrals: [facility] (PCP) Primary Care Physician PASTORA ENG (Family) Primary Care Physician RICHARD GOMES MD Patient Instructions: Kidney Stones (DC), Kidney Stone Diet Add. Discharge Instructions: Drink plenty of fluids. Flomax 1 capsule daily until the stone passes. Strain your urine as directed deceiving catch the stone and you can take it to the urologist to have it tested. Make a follow-up appointment this week with Dr. Gomes, urology by calling today for an appointment. Ondansetron 1 tablet under the tongue every 6 hours as necessary for nausea and/or vomiting. Tylenol 650 mg or 8 hours as necessary for pain. Ibuprofen 800 mg every 8 hours as necessary for pain. Hydrocodone 1 tablet every 6 hours as necessary for severe breakthrough pain. Will cause constipation and drowsiness so do not mix with alcohol. Use MiraLAX or Colace to keep regular while on hydrocodone. All discharge instructions reviewed with patient and/or family. Voiced understanding. Scripts Tamsulosin HCl (Flomax) 0.4 Mg Cap 0.4 MG PO DAILY for 7 Days, #7 CAP 0 Refills Prov: JORDIN BOURGEOIS 05/01/21 Cephalexin (Cephalexin) 500 Mg Tablet 500 MG PO BID for 7 Days, #14 TAB 0 Refills Prov: JORDIN BOURGEOIS 05/01/21 Hydrocodone/Acetaminophen (Hydrocodone-Acetamin 5-325 mg) 1 Each Tablet 1 TAB PO Q4H PRN for PAIN-MODERATE (5-7), #12 TAB 0 Refills Prov: JORDIN BOURGEOIS 05/01/21 Ondansetron (Ondansetron Odt) 4 Mg Tab.rapdis 4 MG PO Q6H PRN for NAUSEA/VOMITING, #8 TAB 0 Refills Prov: JORDIN BOURGEOIS 05/01/21 Work/School Note: Work Release Form Date Seen in the Emergency Department: May 01, 2021 Return to Work: May 03, 2021 Restrictions: No Restrictions Copy Copies To 1: RICHARD GOMES MD, TITUS J May 01, 2021 03:05
[2021-05-01 03:07] LABS: BASOPHILS % (AUTO) 0 % (0-10); EOSINOPHILS # (AUTO) 0.2 10^3/uL (0.0-0.3); EOSINOPHILS % (AUTO) 2 % (0-10); HEMATOCRIT 48 % (40-54); HEMOGLOBIN 15.3 g/dL (13.3-17.7); LYMPHOCYTES # (AUTO) 3.4 10^3/uL (1.0-4.0); LYMPHOCYTES % (AUTO) 47 % (12-44); MEAN CORPUSCULAR HEMOGLOBIN 27 pg (25-34); MEAN CORPUSCULAR HGB CONC 32 g/dL (32-36); MEAN CORPUSCULAR VOLUME 84 fL (80-99); MEAN PLATELET VOLUME 9.3 fL (9.0-12.2); MONOCYTES # (AUTO) 0.5 10^3/uL (0.0-1.0); MONOCYTES % (AUTO) 7 % (0-12); NEUTROPHILS % (AUTO) 43 % (42-75); PLATELET COUNT 260 10^3/uL (130-400); WHITE BLOOD COUNT 7.1 10^3/uL (4.3-11.0)
[2021-05-01 03:29] LABS: ALBUMIN 4.3 GM/DL (3.2-4.5); CHLORIDE 109 MMOL/L (98-107); POTASSIUM 4.5 MMOL/L (3.6-5.0); SODIUM 146 MMOL/L (135-145)
[2021-05-01 03:30] LABS: CALCIUM 9.6 MG/DL (8.5-10.1)
[2021-05-01 03:31] LABS: GLUCOSE 108 MG/DL (70-105)
[2021-05-01 03:32] LABS: CARBON DIOXIDE 26 MMOL/L (21-32)
[2021-05-01 03:33] LABS: BILIRUBIN,TOTAL 0.4 MG/DL (0.1-1.0)
[2021-05-01 03:35] LABS: ALKALINE PHOSPHATASE 70 U/L (40-136); CREATININE SERUM 1.02 MG/DL (0.60-1.30); GFR ESTIMATED > 60
[2021-05-01 03:36] LABS: BUN/CREATININE RATIO 9
[2021-05-01 03:38] LABS: ALANINE AMINOTRANSFERASE 37 U/L (0-55)
[2021-05-01 03:47] LABS: BILIRUBIN,URINE NEGATIVE (NEGATIVE); CLARITY,URINE SL CLOUDY; COLOR,URINE YELLOW; GLUCOSE, URINE (UA) NEGATIVE (NEGATIVE); KETONES,URINE NEGATIVE (NEGATIVE); LEUKOCYTE ESTERASE ,URINE NEGATIVE (NEGATIVE); NITRITE,URINE NEGATIVE (NEGATIVE); PH,URINE 5.5 (5-9); PROTEIN,URINE NEGATIVE (NEGATIVE)
[2021-05-01 04:15] LABS: BACTERIA,URINE FEW /HPF; RBC,URINE >100 /HPF; WBC,URINE 0-2 /HPF
[2021-05-01] MEDS ORDERED: ACHD5005 PO (04:17)
[2021-05-01] MEDS ORDERED: TMSL.4C PO (04:17)
[2021-05-01] MEDS ORDERED: CEPH500T PO (04:17)
[2021-05-01] MEDS ORDERED: ONDA4TAB11 PO (04:17)
[2021-05-01 04:59] VITALS: BP 154/102
--- NOTE | 2021-05-01 05:27 | Diagnostic Imaging Report ---
EXAMINATION: AP supine abdomen INDICATION: Left flank pain. Kidney stones. COMPARISON: Abdominal radiograph performed on 01/21/[address] abdomen and pelvis performed same day. FINDINGS: There is a nonobstructive bowel gas pattern. Scattered gas and stool is noted in the colon, with mild retained stool noted throughout. There is a 5 mm calcification left midabdomen, corresponding with left ureteral calculus seen on CT scan. No other calcifications are noted. No organomegaly or findings to suggest pneumoperitoneum. No acute osseous abnormality is identified. Visualized lung bases are clear. IMPRESSION: Nonobstructive bowel gas pattern. A 5 mm calcification in the left midabdomen corresponds to left ureteral calculus seen on CT scan. Dictated by: Dictated on workstation # [id number]
--- NOTE | 2021-05-01 06:28 | Diagnostic Imaging Report ---
PROCEDURE: CT urinary tract, rule out kidney stone. TECHNIQUE: Multiple contiguous axial images were obtained through the abdomen and pelvis without the use of intravenous contrast. Auto Exposure Controls were utilized during the CT exam to meet ALARA standards for radiation dose reduction. INDICATION: Left flank pain. Patient with history of kidney stones. COMPARISON: Multiple priors, most recent performed on 01/18/2012. FINDINGS: The lung bases are clear. Visualized heart is normal in size. The liver, gallbladder, spleen, pancreas and adrenal glands are unremarkable. There is no biliary or pancreatic ductal dilatation. There is a 5 mm calculus in the proximal left ureter, just beyond the ureteropelvic junction. This causes mild fullness of the left collecting system, without overt hydroureteronephrosis. There is no renal calculus or hydronephrosis on the right. The kidneys are symmetric in size. No abnormality in the visualized ureters. The small bowel and colon are normal in course and caliber, without evidence of wall thickening or obstruction. The appendix is normal. No pneumoperitoneum, abdominal free fluid or loculated collection. The bladder is decompressed and not evaluated. Prostate gland is normal in size. No lymphadenopathy is appreciated. The aorta is nonaneurysmal. The abdominal wall is unremarkable. No acute osseous abnormality is identified. IMPRESSION: There is a 5 mm calculus in the proximal left ureter, just beyond the ureteropelvic junction. This causes mild fullness of the left collecting system. Otherwise, no acute abdominal or pelvic pathology. Findings are in agreement with initial teleradiology report. Dictated by: Dictated on workstation # [id number]
[2021-05-02] MEDS ORDERED: KETO10TA PO (14:18)
== END 2021-05-01 04:59 | disposition home or self-care (01) ==
LOC: EDUNIT# 02:46 → ER 02:48
DX: N20.1 Calculus of ureter (principal)
CPT/HCPCS: 36415; 74018; 74176; 80053; 81000; 85025; 87088

== ENCOUNTER 2021-05-02 12:10 | Emergency (ER) | payer MEDICARE, MEDICAID ==
[~2021-05-02] VITALS: Ht 180.3 cm; Wt 120.4 kg
[~2021-05-02 12:10] MED LIST changes: +ACHD5005 PO; +CEPH500T PO; +ONDA4TAB11 PO; +TMSL.4C PO
[2021-05-02] MEDS ORDERED: LACTATED RINGERS 1,000 ML IV ONE (12:45)
[2021-05-02] MEDS ORDERED: KETOROLAC 30 MG/ML VIAL IVP STA (12:45)
[2021-05-02 13:06] LABS: BILIRUBIN,URINE NEGATIVE (NEGATIVE); CLARITY,URINE CLEAR; COLOR,URINE YELLOW; GLUCOSE, URINE (UA) NEGATIVE (NEGATIVE); KETONES,URINE NEGATIVE (NEGATIVE); LEUKOCYTE ESTERASE ,URINE NEGATIVE (NEGATIVE); NITRITE,URINE NEGATIVE (NEGATIVE); PROTEIN,URINE NEGATIVE (NEGATIVE)
[2021-05-02 13:07] LABS: BASOPHILS % (AUTO) 0 % (0-10); EOSINOPHILS % (AUTO) 0 % (0-10); HEMATOCRIT 46 % (40-54); HEMOGLOBIN 14.6 g/dL (13.3-17.7); LYMPHOCYTES # (AUTO) 1.8 10^3/uL (1.0-4.0); LYMPHOCYTES % (AUTO) 20 % (12-44); MEAN CORPUSCULAR HEMOGLOBIN 26 pg (25-34); MEAN CORPUSCULAR HGB CONC 32 g/dL (32-36); MEAN CORPUSCULAR VOLUME 83 fL (80-99); MEAN PLATELET VOLUME 9.3 fL (9.0-12.2); MONOCYTES # (AUTO) 0.7 10^3/uL (0.0-1.0); MONOCYTES % (AUTO) 8 % (0-12); NEUTROPHILS # (AUTO) 6.4 10^3/uL (1.8-7.8); NEUTROPHILS % (AUTO) 72 % (42-75); PLATELET COUNT 219 10^3/uL (130-400)
[2021-05-02 13:17] LABS: AMPHETAMINE SCREEN, URINE NEGATIVE (NEGATIVE); BARBITURATE SCREEN URINE NEGATIVE (NEGATIVE); BENZODIAZEPINES SCREEN URINE NEGATIVE (NEGATIVE); CANNABINOID SCREEN, URINE NEGATIVE (NEGATIVE); COCAINE SCREEN URINE NEGATIVE (NEGATIVE); METHADONE STAT NEGATIVE (NEGATIVE); METHAMPHETAMINE SCREEN URINE S NEGATIVE (NEGATIVE); OPIATE SCREEN URINE POSITIVE (NEGATIVE); OXYCODONE STAT NEGATIVE (NEGATIVE); PROPOXYPHENE STAT NEGATIVE (NEGATIVE); TRICYCLIC ANTIDEPRESSANTS SCRE NEGATIVE (NEGATIVE)
[2021-05-02 13:20] LABS: CALCIUM 9.2 MG/DL (8.5-10.1)
[2021-05-02 13:22] LABS: TOTAL PROTEIN 6.6 GM/DL (6.4-8.2)
[2021-05-02 13:23] LABS: BILIRUBIN,TOTAL 0.7 MG/DL (0.1-1.0); SQUAMOUS EPITHELIAL CELL,UR RARE /HPF; WBC,URINE RARE /HPF
[2021-05-02 13:25] LABS: CREATININE SERUM 1.47 MG/DL (0.60-1.30)
[2021-05-02 13:27] LABS: BACTERIA,URINE TRACE /HPF
--- NOTE | 2021-05-02 14:14 | Diagnostic Imaging Report ---
INDICATION: Abdominal pain. COMPARISON: Exam compared with 05/01/2021. FINDINGS: Calcification, likely left ureteral stone, is at least partially migrated distally, now projecting over the L4 left-sided lumbar transverse process and measuring 3.9 mm in long axis. There is an adjacent mildly ectatic short segment air-containing small bowel loop segment which may reflect a mild reactive regional ileus. The bowel gas pattern is otherwise unremarkable. No other suspicious calcifications. The bony structures are normal. IMPRESSION: There is probable left ureteral calculus of 3.9 mm, projecting now at the level of the left fourth lumbar transverse processes, previously at the L3 level. There may be a mild reactive regional ileus with an adjacent air-containing small bowel loop segment. Gas pattern is otherwise normal. Dictated by: Dictated on workstation # [id number]
[2021-05-02] MEDS ORDERED: KETO10TA PO (14:18)
--- NOTE | 2021-05-02 14:18 | ED GU-Male ---
General Chief Complaint: Abdominal/GI Problems Stated Complaint: KIDNEY STONES Nursing Triage Note: AMB TO ED C/O L SIDE PAIN THINKS HE MAY HAVE A KIDNEY STONE Allergies and Home Medications Allergies Coded Allergies: No Known Drug Allergies (Unverified , 01/18/12) Home Medications Cephalexin 500 Mg Tablet, 500 MG PO BID Prescribed by: JORDIN BOURGEOIS on 05/01/21 0417 Cyclobenzaprine HCl 10 Mg Tablet, 10 MG PO Q8H PRN for SPASMS Prescribed by: DE GOMEZ on 09/08/20 1328 Hydrocodone/Acetaminophen 1 Each Tablet, 1 TAB PO Q4H PRN for PAIN-MODERATE (5- 7) Prescribed by: JORDIN BOURGEOIS on 05/01/21 0418 Ketorolac Tromethamine 10 Mg Tablet, 10 MG PO Q6H Prescribed by: MARILYN FONTENOT on 05/02/21 1418 Ondansetron 4 Mg Tab.rapdis, 4 MG PO Q6H PRN for NAUSEA/VOMITING Prescribed by: JORDIN BOURGEOIS on 05/01/21 041 Pantoprazole Sodium 40 Mg Tablet.dr, 40 MG PO DAILY, (Reported) Tamsulosin HCl 0.4 Mg Cap, 0.4 MG PO DAILY Prescribed by: JORDIN BOURGEOIS on 05/01/21 041 Tramadol HCl 50 Mg Tablet, 50 MG PO Q6H PRN for PAIN-BREAKTHROUGH Prescribed by: ED GOMEZ on 09/08/20 1330 Past Frcdtuv-Xhzpwn-Krlvvw Hx Patient Social History Tobacco Use?: No Substance use?: No Alcohol Use?: No Pt feels they are or have been: No Seasonal Allergies Seasonal Allergies: No Past Medical History Surgery/Hospitalization HX: RENAL STONES Surgeries: Yes (HERNIA) Abdominal Respiratory: No Cardiac: No Neurological: No Genitourinary: No Gastrointestinal: Yes (hematemesis) Musculoskeletal: No Endocrine: No HEENT: No Cancer: No Psychosocial: No Integumentary: No Blood Disorders: No Physical Exam Vital Signs Vital Signs - First Documented 05/02/21 12:28 Temp 36.0 Pulse 82 Resp 18 B/P (MAP) 147/110 (122) Pulse Ox 96 O2 Delivery Room Air Capillary Refill : Less Than 3 Seconds Height, Weight, BMI Height: 5'11.00" Weight: 255lbs. oz. 115.131834mz; 37.00 BMI Method:Stated Progress/Results/Core Measures Suspected Sepsis SIRS Temperature: Pulse: 82 Respiratory Rate: 18 Laboratory Tests 05/02/21 12:59: White Blood Count 9.0 Blood Pressure 147 /110 Mean: 122 Laboratory Tests 05/02/21 12:59: Creatinine 1.47H, Platelet Count 219, Total Bilirubin 0.7 Results/Orders Lab Results Laboratory Tests Test 05/02/21 12:59 Range/Units White Blood Count 9.0 4.3-11.0 10^3/uL Red Blood Count 5.59 H 4.30-5.52 10^6/uL Hemoglobin 14.6 13.3-17.7 g/dL Hematocrit 46 40-54 % Mean Corpuscular Volume 83 80-99 fL Mean Corpuscular Hemoglobin 26 25-34 pg Mean Corpuscular Hemoglobin Concent 32 32-36 g/dL Red Cell Distribution Width 13.5 10.0-14.5 % Platelet Count 219 130-400 10^3/uL Mean Platelet Volume 9.3 9.0-12.2 fL Immature Granulocyte % (Auto) 0 % Neutrophils (%) (Auto) 72 42-75 % Lymphocytes (%) (Auto) 20 12-44 % Monocytes (%) (Auto) 8 0-12 % Eosinophils (%) (Auto) 0 0-10 % Basophils (%) (Auto) 0 0-10 % Neutrophils # (Auto) 6.4 1.8-7.8 10^3/uL Lymphocytes # (Auto) 1.8 1.0-4.0 10^3/uL Monocytes # (Auto) 0.7 0.0-1.0 10^3/uL Eosinophils # (Auto) 0.0 0.0-0.3 10^3/uL Basophils # (Auto) 0.0 0.0-0.1 10^3/uL Immature Granulocyte # (Auto) 0.0 0.0-0.1 10^3/uL Urine Color YELLOW Urine Clarity CLEAR Urine pH 7.0 5-9 Urine Specific [place] 1.020 1.016-1.022 Urine Protein NEGATIVE NEGATIVE Urine Glucose (UA) NEGATIVE NEGATIVE Urine Ketones NEGATIVE NEGATIVE Urine Nitrite NEGATIVE NEGATIVE Urine Bilirubin NEGATIVE NEGATIVE Urine Urobilinogen 0.2 < = 1.0 MG/DL Urine Leukocyte Esterase NEGATIVE NEGATIVE Urine RBC (Auto) NEGATIVE NEGATIVE Urine RBC 2-5 H /HPF Urine WBC RARE /HPF Urine Squamous Epithelial Cells RARE /HPF Urine Crystals NONE /LPF Urine Bacteria TRACE /HPF Urine Casts NONE /LPF Urine Mucus SMALL H /LPF Urine Culture Indicated NO Sodium Level 140 135-145 MMOL/L Potassium Level 4.0 3.6-5.0 MMOL/L Chloride Level 105 98-107 MMOL/L Carbon Dioxide Level 24 21-32 MMOL/L Anion Gap 11 5-14 MMOL/L Blood Urea Nitrogen 12 7-18 MG/DL Creatinine 1.47 H 0.60-1.30 MG/DL Estimat Glomerular Filtration Rate 54 BUN/Creatinine Ratio 8 Glucose Level 94 70-105 MG/DL Calcium Level 9.2 8.5-10.1 MG/DL Corrected Calcium 9.2 8.5-10.1 MG/DL Total Bilirubin 0.7 0.1-1.0 MG/DL Aspartate Amino Transf (AST/SGOT) 18 5-34 U/L Alanine Aminotransferase (ALT/SGPT) 30 0-55 U/L Alkaline Phosphatase 75 40-136 U/L Total Protein 6.6 6.4-8.2 GM/DL Albumin 4.0 3.2-4.5 GM/DL Urine Opiates Screen POSITIVE H NEGATIVE Urine Oxycodone Screen NEGATIVE NEGATIVE Urine Methadone Screen NEGATIVE NEGATIVE Urine Propoxyphene Screen NEGATIVE NEGATIVE Urine Barbiturates Screen NEGATIVE NEGATIVE Ur Tricyclic Antidepressants Screen NEGATIVE NEGATIVE Urine Phencyclidine Screen NEGATIVE NEGATIVE Urine Amphetamines Screen NEGATIVE NEGATIVE Urine Methamphetamines Screen NEGATIVE NEGATIVE Urine Benzodiazepines Screen NEGATIVE NEGATIVE Urine Cocaine Screen NEGATIVE NEGATIVE Urine Cannabinoids Screen NEGATIVE NEGATIVE My Orders Orders - MARILYN FONTENOT DO Ed Iv/Invasive Line Start (05/02/21 12:45) Cbc With Automated Diff (05/02/21 12:45) Comprehensive Metabolic Panel (05/02/21 12:45) Drug Screen Stat (Urine) (05/02/21 12:45) Ua Culture If Indicated (05/02/21 12:45) Ed Iv/Invasive Line Start (05/02/21 12:45) Lactated Ringers (Lr 1000 Ml Iv Solution (05/02/21 12:45) Ketorolac Injection (Toradol Injection) (05/02/21 12:45) Abdomen/Kub 1view (05/02/21 12:47) Medications Given in ED Current Medications Medications Dose Ordered Sig/Kedar Route Start Time Stop Time Status Last Admin Dose Admin Lactated Ringer's 1,000 ml @ 0 mls/hr Q0M ONCE IV 05/02/21 12:45 05/02/21 12:46 DC 05/02/21 13:44 1,000 MLS/HR Vital Signs/I&O 05/02/21 12:28 Temp 36.0 Pulse 82 Resp 18 B/P (MAP) 147/110 (122) Pulse Ox 96 O2 Delivery Room Air Capillary Refill : Less Than 3 Seconds Blood Pressure Mean: 122 Departure Impression Primary Impression: Left ureteral calculus Disposition: HOME, SELF-CARE Condition: Improved Departure-Patient Inst. Decision time for Depature: 14:15 Referrals: [facility] (PCP) Primary Care Physician PASTORA ENG (Family) Primary Care Physician RICHARD AMBROCIO MD Patient Instructions: How to Strain Your Urine, Kidney Stones (DC) Add. Discharge Instructions: CONTINUE ALL PREVIOUS MEDICATIONS AND INSTRUCTIONS CALL DR. AMBROCIO'S OFFICE TODAY TO SCHEDULE A FOLLOW UP APPOINTMENT THIS WEEK All discharge instructions reviewed with patient and/or family. Voiced understanding. Scripts Ketorolac Tromethamine (Ketorolac Tromethamine) 10 Mg Tablet 10 MG PO Q6H for Pain, #15 TAB Prov: MARILYN FONTENOT DO 05/02/21 Work/School Note: Work Release Form Date Seen in the Emergency Department: May 02, 2021 MARILYN FONTENOT DO May 02, 2021 14:18
[2021-05-02 14:52] VITALS: BP 150/90
== END 2021-05-02 14:52 | disposition home or self-care (01) ==
LOC: EDUNIT# 12:10 → ER 12:11
DX: N20.1 Calculus of ureter (principal)
CPT/HCPCS: 36415; 74018; 80053; 80306; 81000; 85025

== ENCOUNTER 2021-05-08 14:32 | Outpatient (CLI) | payer MEDICARE, MEDICAID ==
[~2021-05-08 14:32] MED LIST changes: -PHEN-640 PO
[2021-05-09] MEDS ORDERED: PHEN-640 PO ×2 (11:47)
[2021-05-09] MEDS ORDERED: TMSL.4C PO ×2 (11:47)
== END 2021-05-08 16:06 | disposition home or self-care (01) ==
LOC: PREOP 14:32
PROVIDERS: ATTEND Urology
DX: Z01.818 Encounter for other preprocedural examination (principal)

== ENCOUNTER → 2021-05-08 | Outpatient (CLI) | payer MEDICARE, MEDICAID ==
[~2021-05-08] MED LIST changes: +KETO10TA PO; +PHEN-640 PO
--- NOTE | 2021-05-08 14:02 | Diagnostic Imaging Report ---
EXAMINATION: Abdomen 1 view HISTORY: Left ureteral stone COMPARISON: 05/02/2021 FINDINGS: Previously seen calcification projecting of the left ureter is no longer in this location. There is no calcification projecting over the bladder versus distal left ureter in the pelvis measuring 3 mm. No dilated bowel is seen. IMPRESSION: 1. Calcification projecting over the proximal left ureter is now projecting over either the bladder or distal left ureter. Dictated by: Dictated on workstation # [id number]
== END ==
LOC: RAD 12:52
DX: N28.89 Other specified disorders of kidney and ureter (principal); N20.1 Calculus of ureter
CPT/HCPCS: 74018

== ENCOUNTER 2021-05-09 06:15 | Day surgery (SDC) | payer MEDICARE, MEDICAID ==
[~2021-05-09] VITALS: Ht 180.3 cm; Wt 119.9 kg
[2021-05-09] VITALS (9 sets, daily range): BP systolic 114–179; BP diastolic 86–121
[2021-05-09] MEDS ORDERED: ceFAZolin INJECTION 1,000 MG in WATER (STERILE) FOR INJECTION 10 ML IV ONE (07:15)
[2021-05-09] MEDS ORDERED: CATHETER FLUSH 10 ML SYR IV PRN (07:30)
--- NOTE | 2021-05-09 07:30 | Progress Note-Pre Operative ---
Pre-Operative Progress Note H&P Reviewed The H&P was reviewed, patient examined and no changes noted. Date Seen by Provider: May 09, 2021 Time Seen by Provider: 07:30 Date H&P Reviewed: May 09, 2021 Time H&P Reviewed: 07:30 Pre-Operative Diagnosis: LR DISTAL URETERAL STONE RICHARD AMBROCIO MD May 09, 2021 07:30
[2021-05-09] MEDS ORDERED: MIDAZOLAM 2 MG/2 ML (VERSED) VIAL ONE ×2 (07:39→08:28)
[2021-05-09] MEDS ORDERED: MIDAZOLAM 2 MG/2 ML (VERSED) VIAL IV ONE (07:45)
[2021-05-09] MEDS: LACTATED RINGERS 1,000 ML IV PRN ×2 (07:56→09:40)
--- NOTE | 2021-05-09 08:13 | Diagnostic Imaging Report ---
INDICATION: Nephrolithiasis, extracorporeal shock wave lithotripsy. TECHNIQUE: 2 supine view of the abdomen 6:48 AM CORRELATION STUDY: 05/08/2021 FINDINGS: Small calcification of the left hemipelvis overall appears unchanged as to position. No definitive calcification of the renal silhouettes. Bowel gas pattern appears nonobstructed. IMPRESSION: 1. No appreciable change in small 3 mm calcification left pelvis. This could be reflective of calcification distal left ureter or perhaps in the adjacent bladder. Dictated by: Dictated on workstation # [id number]
[2021-05-09] MEDS ORDERED: proPOfol 200 MG/20 ML (DIPRIVAN) VIAL IV ONE ×3 (08:24→09:48)
[2021-05-09] MEDS ORDERED: LIDOCAINE PF 2% 5 ML (XYLOCAINE) VIAL ONE (08:24)
[2021-05-09] MEDS ORDERED: ONDANSETRON 4 MG/2 ML (SDV) Z0FRAN ONE (08:25)
[2021-05-09] MEDS ORDERED: FUROSEMIDE 40 MG/4 ML INJ (LASIX) ONE (08:25)
[2021-05-09] MEDS ORDERED: KETOROLAC 30 MG/ML VIAL ONE (08:25)
[2021-05-09] MEDS ORDERED: fentaNYL INJ 100 MCG/2 ML AMP ONE (08:28)
--- NOTE | 2021-05-09 08:31 | Progress Note-Post Operative ---
Post-Operative Progess Note Surgeon (s)/Test Department Helper (s) Surgeon RICHARD AMBROCIO MD Test Department Helper: NONE Pre-Operative Diagnosis LR DISTAL URETERAL STONE Post-Operative Diagnosis SAME Procedure & Operative Findings Date of Procedure 05/09/21 Procedure Performed/Findings CYSTOSCOPY, LT URETEROSCOPY, AND LT ESWL Anesthesia Type GENERAL Estimated Blood Loss Estimated blood loss (mL): NONE Specimens/Packing Specimens Removed NONE Packing: NONE RICHARD AMBROCIO MD May 09, 2021 08:31
--- NOTE | 2021-05-09 08:32 | Discharge Inst-Urology ---
Discharge Inst-Urology Reconcile Patient Problems Problems Reviewed?: Yes Final Diagnosis LT DISTAL URETERAL STONE Patient Instructions/Follow Up Plan/Assessment/Instructions Please make appointment to been seen in office Tuesday 05/22, KUB prior to it. KUB on way home Post ESWL instructions Increase oral fluids for 48 hours and then as needed. Diet and Activity as tolerated. If questions or concerns contact your physician Or seek help at emergency department. RICHARD AMBROCIO MD May 09, 2021 08:32
[2021-05-09] MEDS ORDERED: SEVOFLURANE (ULTANE) 15 ML INHAL SOLN ONE ×2 (09:31→10:19)
[2021-05-09] MEDS ORDERED: ROCURONIUM 10 MG/ML 5 ML SYRINGE IV ONE (09:45)
[2021-05-09] MEDS ORDERED: fentaNYL INJ 100 MCG/2 ML AMP IVP ONE (10:45)
[2021-05-09] MEDS ORDERED: MEPERIDINE (DEMEROL) INJ 50 MG/ML IVP ONE (10:45)
[2021-05-09] MEDS ORDERED: morphine INJ 10 MG/ML 1ML (SYR OR VIAL) IVP ONE (10:45)
[2021-05-09] MEDS ORDERED: ONDANSETRON 4 MG/2 ML (SDV) Z0FRAN IVP PRN (10:45)
[2021-05-09] MEDS ORDERED: PHEN-640 PO ×2 (11:47)
[2021-05-09] MEDS ORDERED: TMSL.4C PO ×2 (11:47)
--- NOTE | 2021-05-09 12:38 | Anesthesia-General Post-Op ---
General Patient Condition Mental Status/LOC: Same as Preop Cardiovascular: Satisfactory Nausea/Vomiting: Absent Respiratory: Satisfactory Pain: Controlled Complications: Absent Post Op Complications Complications None Follow Up Care/Instructions Patient Instructions None needed. Anesthesia/Patient Condition Patient Condition Patient is doing well, no complaints, stable vital signs, no apparent adverse anesthesia problems. No complications reported per nursing. ANABEL ALEXANDER CRNA May 09, 2021 12:38
--- NOTE | 2021-05-09 14:54 | OPERATIVE REPORT ---
DATE OF SERVICE: 05/09/2021 PREOPERATIVE DIAGNOSIS: Left distal ureteral stone. POSTOPERATIVE DIAGNOSIS: Left distal ureteral stone. OPERATIONS PERFORMED: Cystoscopy, left ureteroscopy and left ESWL. SURGEON: William Ambrocio MD. ANESTHESIA: General. COMPLICATIONS: None. DESCRIPTION OF PROCEDURE: Under satisfactory general anesthesia, the patient in lithotomy position on the cystoscopy table, genitalia were prepped and draped in the usual sterile fashion. A 23-Belgian cystoscope was introduced under vision. Anterior urethra was normal. The prostate was nonobstructing, but there was a high riding bar. Bladder was entered. The ureteral orifices were displaced upward and laterally. No foreign body, bladder tumor or stone visualized. Clear effluxes sluggish on the left side. Using the foroblique lens, I dilated the left ureteral orifice intramural portion to the level of the stone. I passed a 6.9-Belgian semirigid ureteroscope; however, I could not manipulate the curve of the ureter, so I discontinued further attempt, removed the ureteroscope, reinserted the cystoscope, emptied the bladder, moved the patient to the ESWL suite. On the ESWL table supine, the left distal ureteral stone was localized. Shocks were delivered at kV of 11. A total of 3000 shocks had completely fragmented the stone. The patient received 40 mg of Lasix and 30 mg of Toradol IV at the end of the procedure. He tolerated the procedure and anesthesia well and was sent to recovery room in stable condition. Job ID: [id number] DocumentID: [id number] Dictated Date: 05/09/2021 10:21:59 Assembly Line Leader Date: 05/09/2021 14:53:49 Dictated By: WILLIAM AMBROCIO MD
--- NOTE | 2021-05-09 16:43 | Diagnostic Imaging Report ---
CLINICAL HISTORY: Post extracorporeal shock wave lithotripsy on the left. COMPARISON: Abdominal radiograph performed earlier the same date. TECHNIQUE: Single supine view of the abdomen and pelvis is obtained. FINDINGS: There is faint calcification in the pelvis to the left of midline measuring approximately 4 mm. Findings may represent urolithiasis versus phlebolith. No calcifications are seen overlying the expected location of the kidneys. No evidence of bowel obstruction. IMPRESSION: 1. Faint calcification overlying the pelvis to the left of midline measuring 4 mm, which may represent urolithiasis. Recommend follow-up as indicated. Dictated by: Dictated on workstation # [id number]
== END 2021-05-09 12:40 | disposition home or self-care (01) ==
LOC: SDC 06:15
PROVIDERS: ATTEND Urology
DX: N20.1 Calculus of ureter (principal); Z79.891 Long term (current) use of opiate analgesic; Z79.899 Other long term (current) drug therapy; Z83.3 Family history of diabetes mellitus; Z80.42 Family history of malignant neoplasm of prostate
CPT/HCPCS: 74018; 76000; 87081

== ENCOUNTER 2022-04-14 18:23 | Emergency (ER) | payer MEDICARE, MEDICAID ==
[~2022-04-14] VITALS: Ht 180.4 cm; Wt 114.0 kg
[~2022-04-14 18:23] MED LIST changes: +CYCL10TA25 PO; -CYCL10TA9 PO; +PHEN-640 PO
--- NOTE | 2022-04-14 18:57 | ED Cough/URI ---
General Chief Complaint: COVID19 Suspect/Confirmed Stated Complaint: CONGESTION,COUGH Nursing Triage Note: C/O CONGESTION AND COUGH FOR LAST 4 DAYS DENEIS FEVER, Source: patient Exam Limitations: no limitations History of Present Illness Date Seen by Provider: Apr 14, 2022 Time Seen by Provider: 18:55 Initial Comments Patient is a 41-year-old male who presents ED with flulike symptoms. Body aches chills fatigue and weakness over the past 3 days. Reports mild congestion with a wet cough. Denies any wheezing, chest pain, abdominal pain, sore throat, ear pain, vomiting or diarrhea. States he has been exposed to COVID from people at work. Patient states he is up-to-date on his COVID vaccines. Has been taken Benadryl anti-inflammatories at home without much improvement. Denies any fever. reports history of hypertension. No history of coronary artery disease, CHF, COPD, asthma. Previous smoker 7 years ago. Patient states he has been well-hydrated. Allergies and Home Medications Allergies Coded Allergies: No Known Drug Allergies (Unverified , 01/18/12) Patient Home Medication List Home Medication List Reviewed: Yes Cephalexin (Cephalexin) 500 Mg Tablet, 500 MG PO BID Prescribed by: JORDIN BOURGEOIS on 05/01/21416 Hydrocodone/Acetaminophen (Hydrocodone-Acetamin 5-325 mg) 1 Each Tablet, 1 TAB PO Q4H PRN for PAIN-MODERATE (5-7) Prescribed by: JORDIN BOURGEOIS on 05/01/21 0418 Ketorolac Tromethamine (Ketorolac Tromethamine) 10 Mg Tablet, 10 MG PO Q6H Prescribed by: MARILYN FONTENOT on 05/02/21 1418 Nirmatrelvir/Ritonavir (Paxlovid 150-100 mg Pack (Eua)) 150 Mg-100 Mg Tablet, 1 EACH PO BID Prescribed by: JOSUÉ ROY on 04/14/22 193 Phenazopyridine HCl (Pyridium) 200 Mg Tablet, 1 TAB PO TID PRN for SPASMS Prescribed by: RAMONITA OLIVARES on 05/09/21 1147 Tamsulosin HCl (Flomax) 0.4 Mg Cap, 0.4 MG PO DAILY Prescribed by: RAMONITA OLIVARES on 05/09/21 1147 Discontinued Medications Nirmatrelvir/Ritonavir (Paxlovid 150-100 mg Pack (Eua)) 150 Mg-100 Mg Tablet, 1 EACH PO BID Prescribed by: JOSUÉ ROY on 04/14/221937 Review of Systems Review of Systems Constitutional: No chills, No diaphoresis, No malaise, No weakness EENTM: nose congestion; No hearing loss, No ear pain, No blurred vision, No nose pain, No throat pain Respiratory: cough; No short of breath Gastrointestinal: No abdominal pain, No diarrhea, No nausea, No vomiting Genitourinary: No decreased output, No discharge Musculoskeletal: No back pain, No joint pain Skin: No change in color, No change in hair/nails All Other Systems Reviewed Negative Unless Noted: Yes Past Clywjas-Rgbmfq-Ogzmev Hx Seasonal Allergies Seasonal Allergies: No Past Medical History Surgery/Hospitalization HX: RENAL STONES Surgeries: Yes (HERNIA) Abdominal Respiratory: No Cardiac: No Neurological: No Genitourinary: No Gastrointestinal: Yes (hematemesis) Musculoskeletal: No Endocrine: No HEENT: No Cancer: No Psychosocial: No Integumentary: No Blood Disorders: No Physical Exam Vital Signs - First Documented Capillary Refill : Less Than 3 Seconds Height: 5'11.00" Weight: 255lbs. oz. 115.983860dg; 35.00 BMI Method:Stated General Appearance: WD/WN, no apparent distress Eyes: Bilateral Eye Normal Inspection, Bilateral Eye PERRL, Bilateral Eye EOMI HEENT: PERRL/EOMI, normal ENT inspection, TMs normal, pharynx normal Neck: non-tender, full range of motion, supple, normal inspection Respiratory: chest non-tender, lungs clear, normal breath sounds, no respiratory distress, no accessory muscle use Cardiovascular: regular rate, rhythm, no edema, no gallop, no JVD Gastrointestinal: normal bowel sounds, non tender, soft, no organomegaly Extremities: normal range of motion, non-tender, normal inspection, no pedal edema, no calf tenderness Neurologic/Psychiatric: stretcher and drier II-XII nml as tested, no motor/sensory deficits, alert, normal mood/affect, oriented x 3 Skin: normal color, warm/dry Progress/Results/Core Measures Suspected Sepsis SIRS Temperature: Pulse: 70 Respiratory Rate: 16 Blood Pressure 124 /83 Mean: 97 Results/Orders Lab Results Laboratory Tests Test 04/14/22 18:30 Range/Units Influenza Type A (RT-PCR) Not Detected Not Detecte Influenza Type B (RT-PCR) Not Detected Not Detecte SARS-CoV-2 RNA (RT-PCR) Detected H Not Detecte My Orders Orders - FLORENCE REY Covid 19 Inhouse Test (04/14/22 18:34) Influenza A And B By Pcr (04/14/22 18:34) Vital Signs/I&O 04/14/22 04/14/22 18:30 18:30 Temp 36.9 Pulse 70 Resp 16 B/P (MAP) 124/83 (97) Pulse Ox 95 O2 Delivery Room Air Room Air Capillary Refill : Less Than 3 Seconds Blood Pressure Mean: 97 Departure Communication (PCP) Patient vital signs stable. No acute distress. Tested positive for COVID. Lung sounds clear bilateral. No wheezing or signs of respiratory distress. No abdominal tenderness. Patient tolerating p.o. fluids at bedside. Discussed with patient potential treatment for Paxlovid. He has no known medical problems or currently on medication. He states he has a strong family history of heart disease. Patient's will be discharged with paxlovid. Recommend quarantine for the duration of the next 7 days. Return precaution were discussed such as worsening cough, shortness of breath or become hypoxic. Discussed pulse ox to monitor oxygen level at home. If any worsening symptoms return back to ED for further evaluation. Impression Primary Impression: COVID-19 Disposition: 01 HOME, SELF-CARE Condition: Stable Departure-Patient Inst. Decision time for Depature: 19:37 Referrals: [facility] ([place]) Primary Care Physician PASTORA ENG (Family) Primary Care Physician Patient Instructions: COVID-19 (DC) Scripts Nirmatrelvir/Ritonavir (Paxlovid 150-100 mg Pack (Eua)) 150 Mg-100 Mg Tablet 1 EACH PO BID for 5 Days, #10 TAB Prov: FLORENCE REY 04/14/22 Work/School Note: Work Release Form Date Seen in the Emergency Department: Apr 14, 2022 Return to Work: Apr 19, 2022 FLORENCE REY Apr 14, 2022 18:57
[2022-04-14] MEDS ORDERED: NIRM1TAB5 PO ×2 (19:38→19:39)
[2022-04-14 19:58] VITALS: BP 112/93
== END 2022-04-14 19:58 | disposition home or self-care (01) ==
LOC: EDUNIT# 18:23 → ER 18:25
DX: U07.1 COVID-19 (principal)
CPT/HCPCS: 87636; 99283

== ENCOUNTER 2022-08-08 19:31 | Emergency (ER) | payer MEDICARE, MEDICAID ==
[~2022-08-08] VITALS: Ht 180.3 cm; Wt 119.3 kg
[~2022-08-08 19:31] MED LIST changes: +NIRM1TAB5 PO
[2022-08-08 19:37] VITALS: BP 139/93
[2022-08-08] MEDS ORDERED: MUPIROCIN 2% OINT 22 GM (BACTROBAN) TUBE TOP STA (20:22)
--- NOTE | 2022-08-08 20:22 | ED GU-Male ---
General Chief Complaint: - Reproductive Stated Complaint: GROIN PAIN Nursing Triage Note: pt ambulatory to room. pt states he cut himself while shaving and got razor burn in his genital region. pt reports burning, itchy, and tenderness to area for 2 days. pt denies other symptoms Source: patient Exam Limitations: no limitations History of Present Illness Date Seen by Provider: Aug 08, 2022 Time Seen by Provider: 19:46 Initial Comments This 42-year-old gentleman presents to the emergency room with skin irritation, erythema, itching, and tenderness in the area around the base of his penis, upper medial thighs around the inguinal fold, and the scrotum. He shaved 2 days ago which triggered the irritation. Allergies and Home Medications Allergies Coded Allergies: No Known Drug Allergies (Unverified , 01/18/12) Patient Home Medication List Home Medication List Reviewed: Yes Cephalexin (Cephalexin) 500 Mg Tablet, 500 MG PO BID Prescribed by: JORDIN BOURGEOIS on 05/01/21 0417 Hydrocodone/Acetaminophen (Hydrocodone-Acetamin 5-325 mg) 1 Each Tablet, 1 TAB PO Q4H PRN for PAIN-MODERATE (5-7) Prescribed by: JORDIN BOURGEOIS on 05/01/21 0418 Ketorolac Tromethamine (Ketorolac Tromethamine) 10 Mg Tablet, 10 MG PO Q6H Prescribed by: MARILYN FONTENOT on 05/02/21 1418 Nirmatrelvir/Ritonavir (Paxlovid 150-100 mg Pack (Eua)) 150 Mg-100 Mg Tablet, 1 EACH PO BID Prescribed by: JOSUÉ ROY on 04/14/22 193 Phenazopyridine HCl (Pyridium) 200 Mg Tablet, 1 TAB PO TID PRN for SPASMS Prescribed by: RAMONITA OLIVARES on 05/09/21 1147 Tamsulosin HCl (Flomax) 0.4 Mg Cap, 0.4 MG PO DAILY Prescribed by: RAMONITA OLIVARES on 05/09/21 1147 Review of Systems Review of Systems Constitutional: no symptoms reported EENTM: no symptoms reported Respiratory: no symptoms reported Cardiovascular: no symptoms reported Genitourinary: see HPI Skin: see HPI Psychiatric/Neurological: No Symptoms Reported Endocrine: No Symptoms Reported Past Mbemlqa-Xcullo-Zrsoyj Hx Patient Social History Smoking Status: Former Smoker Use of E-Cig and/or Vaping dev: No Substance use?: No Alcohol Use?: Yes Alcohol Frequency: Rarely Immunizations Up To Date First/Initial COVID19 Vaccinat: 2020 Second COVID19 Vaccination Ilya: 2020 Seasonal Allergies Seasonal Allergies: No Past Medical History Surgery/Hospitalization HX: HERNIA REPAIRKIDNEY STONE REMOVALSEGD 05/[address] ADAM--GASTRITIS AND HIATAL HERNIA Surgeries: Yes (HERNIA) Abdominal, Renal (Kidney stone) Respiratory: No Cardiac: No Neurological: No Genitourinary: No Gastrointestinal: Yes (hematemesis) Musculoskeletal: No Endocrine: No HEENT: No Cancer: No Psychosocial: No Integumentary: No Blood Disorders: No Physical Exam Vital Signs Vital Signs - First Documented 08/08/22 19:37 Temp 36.6 Pulse 76 Resp 18 B/P (MAP) 139/93 (108) Pulse Ox 97 Capillary Refill : Height, Weight, BMI Height: 5'11.00" Weight: 255lbs. oz. 115.538106gz; 36.00 BMI Method:Stated General Appearance: WD/WN, no apparent distress, obese HEENT: normal ENT inspection Cardiovascular: regular rate, rhythm, no murmur Respiratory: lungs clear, normal breath sounds, no respiratory distress Gastrointestinal: non tender, soft Male: other (Normal penis. There is some excoriated skin just lateral to the left penile base. There is scattered slightly raised erythema on the thighs around the inguinal folds and around the base of the penis. No apparent abscesses. Scrotum appeared normal despite him feeling scrotal irritation.) Neurologic/Psychiatric: alert, normal mood/affect, oriented x 3 Skin: rash (See genital exam above) Progress/Results/Core Measures Suspected Sepsis SIRS Temperature: Pulse: 76 Respiratory Rate: 18 Blood Pressure 139 /93 Mean: 108 Results/Orders My Orders Orders - ED WADDELL MD Mupirocin Ointment (Bactroban Ointment (08/08/22 20:22) Vital Signs/I&O 08/08/22 19:37 Temp 36.6 Pulse 76 Resp 18 B/P (MAP) 139/93 (108) Pulse Ox 97 Capillary Refill : Blood Pressure Mean: 108 Progress Note : Progress Note Bactroban ointment was dispensed with the patient for immediate. See discharge instructions for further discussion. Departure Impression Primary Impression: Folliculitis Additional Impression: Abrasion Disposition: 01 HOME, SELF-CARE Condition: Stable Departure-Patient Inst. Decision time for Depature: 20:24 Referrals: [facility] [place] (PCP) Primary Care Physician PASTORA ENG (Family) Primary Care Physician Patient Instructions: Folliculitis Add. Discharge Instructions: Apply a thin layer of the Bactroban (mupirocin) ointment to the affected areas until there is complete resolution. It may take a couple of days of treatment before you notice significant improve all. Do not shave or otherwise disrupted the skin until everything is completely healed. Avoid scratching the area. Return to care if you have worsening symptoms despite following these instructions. All discharge instructions reviewed with patient and/or family. Voiced understanding. Copy Copies To 1: [facility] [place]/ED TGZ MD Aug 08, 2022 20:22
== END 2022-08-08 20:35 | disposition home or self-care (01) ==
LOC: EDUNIT# 19:31 → ER 19:34
DX: S30.812A Abrasion of penis, initial encounter (principal); L73.9 Follicular disorder, unspecified; Z87.891 Personal history of nicotine dependence; W26.8XXA Contact with other sharp object(s), not elsewhere classified, initial encounter
CPT/HCPCS: 99282

== ENCOUNTER 2022-09-09 18:39 | Emergency (ER) | payer MEDICARE, MEDICAID ==
[~2022-09-09] VITALS: Ht 180.3 cm; Wt 115.7 kg
[2022-09-09 19:15] VITALS: BP 147/107
[2022-09-09] MEDS ORDERED: ACETAMINOPHEN 500 MG TAB (TYLENOL) PO STA (19:28)
--- NOTE | 2022-09-09 20:09 | ED Cough/URI ---
General Chief Complaint: Cough/Cold/Flu Symptoms Stated Complaint: VOMITING/COUGH/FEVER Nursing Triage Note: PT AMB TO FT 2 W C/O COUGH, FEVER, CHILLS, RUNNY NOSE, NAUSEA, AND KINNEY SX EVENING OF 09/07/22. PT A&OX4. (SENG AYALA) History of Present Illness Date Seen by Provider: Sep 09, 2022 Time Seen by Provider: 19:15 Initial Comments 42-year-old male presents for cough, myalgias, nasal congestion, headache and fevers for the last 2 days. His girlfriend has been sick but not evaluated by HCP. He is not vaccinated for COVID or influenza. He has been taking zfmk-[id number] Tylenol with no improvement in symptoms. Timing/Duration: intermittent Severity/Quality: mild, productive cough Prior Episodes/Possible Cause: no prior episodes Associated Symptoms: fever/chills, muscle aches, nasal congestion, nasal drainage, shortness of breath (SENG AYALA) Allergies and Home Medications Allergies Coded Allergies: No Known Drug Allergies (Unverified , 01/18/12) Patient Home Medication List Home Medication List Reviewed: Yes (SENG AYALA) Cephalexin (Cephalexin) 500 Mg Tablet, 500 MG PO BID Prescribed by: JORDIN BOURGEOIS on 05/01/21416 Hydrocodone/Acetaminophen (Hydrocodone-Acetamin 5-325 mg) 1 Each Tablet, 1 TAB PO Q4H PRN for PAIN-MODERATE (5-7) Prescribed by: JORDIN BOURGEOIS on 05/01/21 041 Ketorolac Tromethamine (Ketorolac Tromethamine) 10 Mg Tablet, 10 MG PO Q6H Prescribed by: MARILYN FONTENOT on 05/02/21 1418 Nirmatrelvir/Ritonavir (Paxlovid 150-100 mg Pack (Eua)) 150 Mg-100 Mg Tablet, 1 EACH PO BID Prescribed by: JOSUÉ ROY on 04/14/22 193 Phenazopyridine HCl (Pyridium) 200 Mg Tablet, 1 TAB PO TID PRN for SPASMS Prescribed by: RAMONITA OLIVARES on 05/09/21 1147 Tamsulosin HCl (Flomax) 0.4 Mg Cap, 0.4 MG PO DAILY Prescribed by: RAMONITA OLIVARSE on 05/09/21 1147 Review of Systems Review of Systems Constitutional: see HPI, fever, malaise EENTM: see HPI, no symptoms reported Respiratory: see HPI, cough; No dyspnea on exertion, No short of breath Cardiovascular: no symptoms reported, see HPI Gastrointestinal: no symptoms reported, see HPI Genitourinary: no symptoms reported, see HPI (SENG AYALA) All Other Systems Reviewed Negative Unless Noted: Yes (SENG AYALA) Past Mqyenhx-Cvjdzn-Svepgy Hx Patient Social History Tobacco Use?: No Use of E-Cig and/or Vaping dev: No Substance use?: No Alcohol Use?: No (SENG AYALA) Immunizations Up To Date Influenza Vaccine Up-to-Date: No; Not Current First/Initial COVID19 Vaccinat: 2020 Second COVID19 Vaccination Ilya: 2020 Third COVID19 Vaccination Date: NONE COVID19 Vaccine Ore Mixer: Neomobile X2 (SENG AYALA) Seasonal Allergies Seasonal Allergies: No (SENG AYALA) Past Medical History Surgery/Hospitalization HX: HERNIA REPAIR KIDNEY STONE REMOVALS EGD 05/[address] ADAM--GASTRITIS AND HIATAL HERNIA Surgeries: Yes (HERNIA) Abdominal, Renal Respiratory: No Cardiac: No Neurological: No Genitourinary: No Gastrointestinal: Yes (hematemesis) Musculoskeletal: No Endocrine: No HEENT: No Cancer: No Psychosocial: No Integumentary: No Blood Disorders: No (SENG AYALA) Family Medical History Reviewed Nursing Family Hx (SENG AYALA) Physical Exam Vital Signs - First Documented 09/09/22 19:15 Temp 38.7 Pulse 100 Resp 20 B/P (MAP) 147/107 (120) Pulse Ox 96 O2 Delivery Room Air (CLAUDIA GUERRERO MD) Capillary Refill : Less Than 3 Seconds (SENG AYALA) Height: 5'11.00" Weight: 255lbs. oz. 115.055970gp; 35.00 BMI Method:Stated General Appearance: WD/WN, no apparent distress HEENT: PERRL/EOMI, normal ENT inspection, TMs normal, pharynx normal Neck: non-tender, full range of motion, supple, normal inspection Respiratory: chest non-tender, lungs clear, normal breath sounds Cardiovascular: normal peripheral pulses, regular rate, rhythm Gastrointestinal: normal bowel sounds, non tender, soft Extremities: normal range of motion, non-tender, normal inspection Neurologic/Psychiatric: no motor/sensory deficits, alert, normal mood/affect, oriented x 3 Skin: normal color, warm/dry (SENG AYALA) Progress/Results/Core Measures Suspected Sepsis SIRS Temperature: Pulse: 100 Respiratory Rate: 20 Blood Pressure 147 /107 Mean: 120 (SENG AYALA) Results/Orders Lab Results Laboratory Tests Test 09/09/22 19:19 Range/Units Influenza Type A (RT-PCR) Not Detected Not Detecte Influenza Type B (RT-PCR) Not Detected Not Detecte SARS-CoV-2 RNA (RT-PCR) Not Detected Not Detecte (CLAUDIA GUERRERO MD) Vital Signs/I&O 09/09/22 09/09/22 09/09/22 19:15 19:43 20:25 Temp 38.7 38.7 37.8 Pulse 100 Resp 20 B/P (MAP) 147/107 (120) Pulse Ox 96 O2 Delivery Room Air (CLAUDIA GUERRERO MD) Vital Signs/I&O Capillary Refill : Less Than 3 Seconds (SENG AYALA) Blood Pressure Mean: 120 Departure Impression Primary Impression: Viral URI Disposition: 01 HOME, SELF-CARE Condition: Improved Departure-Patient Inst. Decision time for Depature: 20:10 (SENG AYALA) Referrals: [facility] (PCP/Family) Primary Care Physician Patient Instructions: Cough, Adult (DC) Add. Discharge Instructions: Alternate between Tylenol 650 mg and ibuprofen 600 mg every 4 hours for pain or fever. Increase water intake, 16 ounces every 2 hours while awake. Tjof-dsn-bxvzlmt cough and cold medicine as needed. You can return to work when you are fever free for 24 hours without medication. Return to the emergency department for new, urgent healthcare problems. Follow-up with your primary care provider if symptoms are not improving or worsens. All discharge instructions reviewed with patient and/or family. Voiced understanding. PHYSICIAN ATTESTATION NOTE: I was present in the ER while PHD INTERNSHIP / PA saw the patient, but I was not involved in the care, exam, or management of the patient. (CLAUDIA GUERRERO MD) SENG AYALA Sep 09, 2022 20:09 CLAUDIA GUERRERO MD Sep 12, 2022 06:42
== END 2022-09-09 20:25 | disposition home or self-care (01) ==
LOC: EDUNIT# 18:39 → ER 18:42
DX: J06.9 Acute upper respiratory infection, unspecified (principal); Z20.822 Contact with and (suspected) exposure to COVID-19
CPT/HCPCS: 87636; 99283

== ENCOUNTER 2023-08-10 09:02 | Emergency (ER) | payer MEDICARE, MEDICAID ==
[~2023-08-10] VITALS: Ht 180.3 cm; Wt 130.0 kg
[2023-08-10] MEDS ORDERED: morphine INJ 10 MG/ML 1ML (SYR OR VIAL) IVP STA (09:27)
[2023-08-10] MEDS ORDERED: NS IV 1000 ML 1,000 ML IV SCH (09:30)
[2023-08-10] MEDS ORDERED: ONDANSETRON INJECTION 4 MG/2 ML (SDV) IVP ONE (09:30)
--- NOTE | 2023-08-10 09:33 | ED Abdominal Pain ---
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 Pt reports he has sharp right flank pain, rating it 8/10, and increased pressure with urination. States this feels similar to the last several times he has had kidney stones. He does not currently have any ureteral stents, but has had a prior stone retrieval procedure. He notes some mild constipation. Denies fever, chills, hematuria, cough, shortness of breath, chest pain, abdominal pain, or any other sx. He has hx of hernia repair. Timing/Duration: 1/2 Hour Severity/Quality: Moderate Location: Flank (right ) Radiation: No Radiation Activities at Onset: Activity, Rest Modifying Factors: Worsens With Coughing; Improves With Movement Associated Symptoms: No Chest Pain, No Diaphoresis, No Fever/Chills, No Headache, No Heartburn, No Nausea/Vomiting, No Rash, No Shortness of Air, No Syncope, No Weakness (SHANIKA TAM) Allergies and Home Medications Allergies Coded Allergies: No Known Drug Allergies (Unverified , 01/18/12) Patient Home Medication List Home Medication List Reviewed: Yes (SHANIKA TAM) Cephalexin (Cephalexin) 500 Mg Tablet, 500 MG PO BID Prescribed by: JORDIN BOURGEOIS on 05/01/21 0917 Hydrocodone/Acetaminophen (Hydrocodone-Acetamin 5-325 mg) 1 Each Tablet, 1 TAB PO Q4H PRN for PAIN-MODERATE (5-7) Prescribed by: JORDIN BOURGEOIS on 05/01/21417 Ketorolac Tromethamine (Ketorolac Tromethamine) 10 Mg Tablet, 10 MG PO Q6H Prescribed by: MARILYN FONTENOT on 05/02/21 1418 Nirmatrelvir/Ritonavir (Paxlovid 150-100 mg Pack (Eua)) 150 Mg-100 Mg Tablet, 1 EACH PO BID Prescribed by: JOSUÉ ROY on 04/14/22 193 Phenazopyridine HCl (Pyridium) 200 Mg Tablet, 1 TAB PO TID PRN for SPASMS Prescribed by: RAMONITA OLIVARES on 05/09/21 1147 Tamsulosin HCl (Flomax) 0.4 Mg Cap, 0.4 MG PO DAILY Prescribed by: RAMONITA OLIVARES on 05/09/21 1147 Review of Systems Review of Systems Constitutional: No chills, No diaphoresis, No dizziness, No fever EENTM: No Blurred Vision, No Double Vision Respiratory: Denies Cough, Denies Shortness of Air Cardiovascular: Denies Chest Pain, Denies Edema Gastrointestinal: Denies Abdominal Pain; Constipated; Denies Diarrhea, Denies Nausea, Denies Vomiting Genitourinary: Denies Burning, Denies Discharge; Flank Pain (right flank); Denies Hematuria, Denies Incontinence, Denies Urgency Musculoskeletal: No muscle stiffness, No muscle cramps, No muscle weakness Skin: No change in color, No pruritus, No rash Psychiatric/Neurological: Denies Headache, Denies Weakness Endocrine: Denies Flushing Hematologic/Lymphatic: Denies Anemia (SHANIKA TAM) All Other Systems Reviewed Negative Unless Noted: Yes (SHANIKA TAM) Past Okhkhxf-Vkckir-Noysjh Hx Patient Social History Tobacco Use?: No Substance use?: No Alcohol Use?: Yes Pt feels they are or have been: No (SHANIKA TAM) Immunizations Up To Date First/Initial COVID19 Vaccinat: 2020 Second COVID19 Vaccination Ilya: 2020 Third COVID19 Vaccination Date: NONE (SHANIKA TAM) Seasonal Allergies Seasonal Allergies: No (SHANIKA TAM) Past Medical History Surgery/Hospitalization HX: HERNIA REPAIR KIDNEY STONE REMOVALS EGD 05/[address] ADAM--GASTRITIS AND HIATAL HERNIA Surgeries: Yes (HERNIA) Abdominal, Renal Respiratory: No Cardiac: No Neurological: No Genitourinary: No Gastrointestinal: Yes (hematemesis) Musculoskeletal: No Endocrine: No HEENT: No Cancer: No Psychosocial: No Integumentary: No Blood Disorders: No (SHANIKA TAM) Physical Exam Vital Signs Vital Signs - First Documented 08/10/23 09:10 Temp 36.6 Pulse 76 Resp 14 B/P (MAP) 149/107 (121) Pulse Ox 98 O2 Delivery Room Air ([facility]) Vital Signs Capillary Refill : (SHANIKA TAM) Height/Weight/BMI Height: 5'11.00" Weight: 255lbs. oz. 115.734620by; 39.00 BMI Method:Stated General Appearance: WD/WN, no apparent distress HEENT: PERRL/EOMI, normal ENT inspection Neck: non-tender, full range of motion, supple, normal inspection Respiratory: chest non-tender, lungs clear, normal breath sounds, no respiratory distress, no accessory muscle use Cardiovascular: normal peripheral pulses, regular rate, rhythm, no edema, no gallop, no JVD, no murmur Peripheral Pulses: 2+ Dorsalis Pedis (R), 2+ Left Dors-Pedis (L), 2+ Radial Pulses (R), 2+ Radial Pulses (L) Gastrointestinal: normal bowel sounds, non tender, soft, no organomegaly, no pulsatile mass Extremities: normal range of motion, non-tender, normal inspection, no pedal edema, no calf tenderness, normal capillary refill Back: no CVA tenderness, no vertebral tenderness; No CVA tenderness (R), No CVA tenderness (L) Neurologic/Psychiatric: no motor/sensory deficits, alert, normal mood/affect, oriented x 3 Skin: normal color, warm/dry Lymphatic: no adenopathy (SHANIKA TAM) Progress/Results/Core Measures Results/Orders Lab Results Laboratory Tests Test 08/10/23 09:37 Range/Units White Blood Count 6.0 4.3-11.0 10^3/uL Red Blood Count 5.95 H 4.30-5.52 10^6/uL Hemoglobin 15.5 13.3-17.7 g/dL Hematocrit 49 40-54 % Mean Corpuscular Volume 83 80-99 fL Mean Corpuscular Hemoglobin 26 25-34 pg Mean Corpuscular Hemoglobin Concent 31 L 32-36 g/dL Red Cell Distribution Width 13.6 10.0-14.5 % Platelet Count 282 130-400 10^3/uL Mean Platelet Volume 9.3 9.0-12.2 fL Immature Granulocyte % (Auto) 0 % Neutrophils (%) (Auto) 52 42-75 % Lymphocytes (%) (Auto) 39 12-44 % Monocytes (%) (Auto) 6 0-12 % Eosinophils (%) (Auto) 2 0-10 % Basophils (%) (Auto) 0 0-10 % Neutrophils # (Auto) 3.1 1.8-7.8 10^3/uL Lymphocytes # (Auto) 2.4 1.0-4.0 10^3/uL Monocytes # (Auto) 0.4 0.0-1.0 10^3/uL Eosinophils # (Auto) 0.1 0.0-0.3 10^3/uL Basophils # (Auto) 0.0 0.0-0.1 10^3/uL Immature Granulocyte # (Auto) 0.0 0.0-0.1 10^3/uL Sodium Level 143 135-145 MMOL/L Potassium Level 4.2 3.6-5.0 MMOL/L Chloride Level 109 H 98-107 MMOL/L Carbon Dioxide Level 22 21-32 MMOL/L Anion Gap 12 5-14 MMOL/L Blood Urea Nitrogen 13 7-18 MG/DL Creatinine 1.13 0.60-1.30 MG/DL Estimat Glomerular Filtration Rate 84 BUN/Creatinine Ratio 12 Glucose Level 100 70-105 MG/DL Calcium Level 9.7 8.5-10.1 MG/DL Corrected Calcium 9.3 8.5-10.1 MG/DL Total Bilirubin 0.6 0.1-1.0 MG/DL Aspartate Amino Transf (AST/SGOT) 27 5-34 U/L Alanine Aminotransferase (ALT/SGPT) 48 0-55 U/L Alkaline Phosphatase 77 40-136 U/L Total Protein 7.7 6.4-8.2 GM/DL Albumin 4.5 3.2-4.5 GM/DL Lipase 20 8-78 U/L (FANI,JULIOCESAR L DO) My Orders Orders - FANI,JULIOCESAR L DO Cbc And Automated Diff (08/10/23:) Comprehensive Metabolic Panel (08/10/23:27) Iv/Invasive Line Insertion .IV INSERT (08/10/23:27) Lipase (08/10/23:) Ns Iv 1000 Ml (Ns Iv 1000 Ml) (08/10/23 09:30) Ondansetron Injection (Ondansetron Inj (08/10/23:30) Morphine Injection (Morphine Injection (08/10/23 09:27) Ct Abdomen/Pelvis W (08/10/23 09:27) Iohexol Injection (Omnipaque 350 Mg/Ml 1 (08/10/23 09:45) Received Contrast (Hold Metformin- Contr (08/10/23 09:45) Ns (Ivpb) 100 Ml (Sodium Chloride 0.9% 1 (08/10/23 09:45) Ua Culture If Indicated (08/10/23 10:38) (JULIOCESAR MOHR DO) Medications Given in ED Current Medications Medications Dose Ordered Sig/Kedar Route Start Time Stop Time Status Last Admin Dose Admin Iohexol 100 ml ONCE ONCE IV 08/10/23 09:45 08/10/23 09:46 DC 08/10/23 09:39 100 ML Ondansetron HCl 4 mg ONCE ONCE IVP 08/10/23 09:30 08/10/23 09:31 DC 08/10/23 09:51 4 MG Sodium Chloride 100 ml ONCE ONCE IV 08/10/23 09:45 08/10/23 09:46 DC 08/10/23 09:39 80 ML (JULIOCESAR MOHR DO) Vital Signs/I&O 08/10/23 09:10 Temp 36.6 Pulse 76 Resp 14 B/P (MAP) 149/107 (121) Pulse Ox 98 O2 Delivery Room Air (JULIOCESAR MOHR DO) Blood Pressure Mean: 121 Progress Progress Note : Time: 09:35 Progress Note Initial impression: 43 YO male with history of nephrolithiasis presented c/o right flank pain for x 2 hours. Pt is afebrile with vital signs requiring no immediate intervention. Exam is remarkable for right flank tenderness to palpation, no significant CVA tenderness. Abdomen is otherwise soft and non tender. DDx includes nephrolithiasis, pyelonephritis, appendicitis, cholecystitis, musculoskeletal pain, SBO, PNA vs others. Low likelihood of pyelonephritis with no fever/chills, no significant CVA tenderness, and short onset of symptoms. Less concerned for cholecystitis as his pain is mostly in the flank region, with no association of food and quick onset of sx. Low suspicion for SBO as he has mild constipation but continues to pass stool. Less likelihood of PNA with normal breath sounds, no recent cough, shortness of breath, or fever/chills. Will obtain CT abd/pelvis, CBC, CMP, and UA for further evaluation. Will provide 1L NS and toradol for symptomatic control. Pt is agreeable with plan. (SHANIKA TAM) Departure Communication (Admissions) Hemodynamically stable he has a nonsurgical abdominal exam. CT scan shows very small stone at the distal right ureter. His pain is controlled with the provided morphine. Discharged home with hydrocodone, Toradol and Zofran, Flomax he has seen urology in the past and advised him to call to schedule follow-up appointment. Return to care for any persistent pain is not controlled medications (JULIOCESAR MOHR DO) Impression Primary Impression: Ureterolithiasis Disposition: HOME, SELF-CARE Condition: Stable Departure-Patient Inst. Referrals: [facility] [place] (PCP/Family) Primary Care Physician Patient Instructions: Kidney stones in adults Add. Discharge Instructions: You are seen in the emergency department today for right-sided abdominal pain. You do have a small kidney stone that seems like it is about to pass into your bladder. Take pain medicine as prescribed as needed. Increase your fluids at home and rest. Return to the emergency department for any severe concerns. Primarily return if you have any pain is not controlled by pain medications if you develop any fevers. Follow-up with urology by calling to schedule an appointment All discharge instructions reviewed with patient and/or family. Voiced understanding. Scripts Tamsulosin HCl (Flomax) 0.4 Mg Cap 0.4 MG PO DAILY for 3 Days, #3 CAP Prov: JULIOCESAR MOHR DO 08/10/23 Ondansetron (Ondansetron Odt) 8 Mg Tab.rapdis 8 MG SL Q6H PRN for NAUSEA/VOMITING for 3 Days, #12 TAB Prov: JULIOCESAR MOHR DO 08/10/23 Ketorolac Tromethamine (Ketorolac Tromethamine) 10 Mg Tablet 10 MG PO TID for Pain for 3 Days, #9 TAB Prov: JULIOCESAR MOHR DO 08/10/23 Hydrocodone/Acetaminophen (Hydrocodone-Acetamin 5-325 mg) 5 Mg-325 Mg Tablet 1 TAB PO Q4H PRN for PAIN-MODERATE (5-7) for 3 Days, #12 TAB Prov: JULIOCESAR MOHR DO 08/10/23 SAHNIKA TAM Aug 10, 2023 09:33 JULIOCESAR MOHR DO Aug 10, 2023 10:44
[2023-08-10] MEDS ORDERED: IOHEXOL 350 MG/ML 100 ML (OMNIPAQUE 350) VIAL IV ONE (09:45)
[2023-08-10] MEDS ORDERED: NS 100 ML (IVPB) BAG IV ONE (09:45)
[2023-08-10] MEDS ORDERED: HOLD METFORMIN - RECEIVED CONTRAST 20 ML VIAL IV SCH (09:45)
[2023-08-10 10:07] LABS: BASOPHILS % (AUTO) 0 % (0-10); EOSINOPHILS # (AUTO) 0.1 10^3/uL (0.0-0.3); EOSINOPHILS % (AUTO) 2 % (0-10); HEMATOCRIT 49 % (40-54); HEMOGLOBIN 15.5 g/dL (13.3-17.7); LYMPHOCYTES # (AUTO) 2.4 10^3/uL (1.0-4.0); LYMPHOCYTES % (AUTO) 39 % (12-44); MEAN CORPUSCULAR HEMOGLOBIN 26 pg (25-34); MEAN CORPUSCULAR HGB CONC 31 g/dL (32-36); MEAN CORPUSCULAR VOLUME 83 fL (80-99); MEAN PLATELET VOLUME 9.3 fL (9.0-12.2); MONOCYTES # (AUTO) 0.4 10^3/uL (0.0-1.0); MONOCYTES % (AUTO) 6 % (0-12); NEUTROPHILS # (AUTO) 3.1 10^3/uL (1.8-7.8); NEUTROPHILS % (AUTO) 52 % (42-75); PLATELET COUNT 282 10^3/uL (130-400)
[2023-08-10 10:18] LABS: ALBUMIN 4.5 GM/DL (3.2-4.5); POTASSIUM 4.2 MMOL/L (3.6-5.0)
[2023-08-10 10:20] LABS: CALCIUM 9.7 MG/DL (8.5-10.1)
[2023-08-10 10:21] LABS: TOTAL PROTEIN 7.7 GM/DL (6.4-8.2)
[2023-08-10 10:23] LABS: BILIRUBIN,TOTAL 0.6 MG/DL (0.1-1.0)
[2023-08-10 10:24] LABS: CREATININE SERUM 1.13 MG/DL (0.60-1.30)
--- NOTE | 2023-08-10 10:33 | Diagnostic Imaging Report ---
PROCEDURE: CT abdomen and pelvis with contrast. TECHNIQUE: Multiple contiguous axial images were obtained through the abdomen and pelvis after administration of intravenous contrast. Auto Exposure Controls were utilized during the CT exam to meet ALARA standards for radiation dose reduction. All CT scans use one or more of the following dose optimizing techniques: automated exposure control, MA and/or KvP adjustment based on patient size and exam type or iterative reconstruction. INDICATION: Right abdominal pain. COMPARISON: 05/01/2021 FINDINGS: The lung bases demonstrate groundglass opacities which are nonspecific and may be due to hypoinflation and atelectasis. The heart is upper normal in size. The liver demonstrates no focal lesions. The spleen appears normal. The pancreas has mild fatty atrophy but is otherwise unremarkable. The adrenal glands appear normal. The kidneys demonstrate no enhancing lesions. There is no significant hydronephrosis, but there does appear to be a tiny hyperdensity in the distal right ureter measuring about 2 mm in diameter (image 185 series 2). The urinary bladder is not distended. There are nonobstructing calculi in the kidneys bilaterally which are punctate in size. The bowel loops are nondistended without obstruction. The appendix is normal. No free fluid or free air is seen. There is a small fat-containing left inguinal hernia. The aorta is normal in caliber and there is no lymphadenopathy. No acute osseous abnormality is seen. IMPRESSION: 1. Small 2 mm calculus in the distal right ureter, without significant hydronephrosis or hydroureter. Additional nonobstructing punctate calculi in the kidneys bilaterally. 2. Nonspecific groundglass opacities in the lung bases, likely due to atelectasis and hypoinflation. Infectious or inflammatory etiologies are not excluded. Dictated by: Dictated on workstation # [id number]
[2023-08-10] MEDS ORDERED: KETO10TA PO (10:41)
[2023-08-10] MEDS ORDERED: ACHD5005 PO (10:41)
[2023-08-10] MEDS ORDERED: ONDA8TAB13 SL (10:41)
[2023-08-10] MEDS ORDERED: TMSL.4C PO (10:44)
[2023-08-10 11:03] LABS: BILIRUBIN,URINE NEGATIVE (NEGATIVE); CLARITY,URINE SL CLOUDY; COLOR,URINE YELLOW; GLUCOSE, URINE (UA) NEGATIVE (NEGATIVE); KETONES,URINE TRACE (NEGATIVE); LEUKOCYTE ESTERASE ,URINE NEGATIVE (NEGATIVE); NITRITE,URINE NEGATIVE (NEGATIVE); PROTEIN,URINE 1+ (NEGATIVE)
[2023-08-10 11:04] LABS: BACTERIA,URINE NEGATIVE /HPF; RBC,URINE 25-50 /HPF
[2023-08-10 11:17] VITALS: BP 140/99
== END 2023-08-10 11:19 | disposition home or self-care (01) ==
LOC: EDUNIT# 09:02 → ER 09:04
DX: N20.1 Calculus of ureter (principal)
CPT/HCPCS: 36415; 74177; 80053; 81000; 83690; 85025; 96374; 96375